=== PATIENT | female | born 1995 | race Caucasian/White ===

== ENCOUNTER 2019-07-19 01:14 | Emergency (ER) | payer OTHER ==
--- NOTE | 2019-07-19 01:32 | NUR ---
PT PRESENTED TO CONCRETE [employer]ER STATING SHE WAS NERVOUS ABOUT GETTING THE CORONAVIRUS SO SHE DECIDED TO LEAVE WITHOUT BEING SEEN.
--- OUTSIDE RECORDS SUMMARY | 2019-07-19 15:39 | XMS REPORT | CCD ---
Author Author Otilio Reddy Organization Abby Dodd MD, [facility] Address [address] [place] [address] Phone Care Team Providers Care Pattern Painter Name Role Phone PP Unavailable CCM Unavailable Summary Purpose Interface Exchange Insurance Providers Payer name Policy type / Coverage type Covered libertarian ID Effective Begin Date Effective End Date Blue Cross Blue [facility] e Cross/Blue Shield [id number] 2017 Un known Family history Father Diagnosis Age At Onset Alcoholism Unknown Social History Social History Element Codes Description Effective Dates Marital status Unknown S kaye 05/28/2017 Number of children Unknown 0 05/28/[address]: 68993867 Current every day smoker 05/28/2017 Number of years using tobacco Unknown 5 - 10 05/28/2017 Number of cigarettes/day Unknown 20 (One Pack) 05/28/2017 Alcohol history Unknown occasionally drinks alcohol 05/28/2017 Allergies, Adverse Reactions, Alerts Allergies, Adverse Reactions, Alerts data not found Past Medical History Illness Codes Condition Status Onset Date Resolved Date Attention-deficit hy peractivity disorder, combined type ICD-9: 314.01 ICD-10: F90.2 Active 05/28/2017 Unknown Essential (primary) hypertension ICD-9: 401.1 ICD-10: I10 Active 05/28/2017 Unknown Problems Condition Codes Effectiv e Dates Condition Status Attention-deficit hy peractivity disorder, combined type ICD-9: 314.01 ICD-10: F90.2 05/28/2017 Active Essential (primary) hypertension ICD-9: 401.1 ICD-10: I10 05/28/2017 Active Medications Medication Codes Instruc tions Start Date Stop Date Sta tus Fill Instructions Adderall 30 mg tablet RxNorm: 486984 1 Tablet(s) PO BID 11/26/2018 12/25/2018 Active Adderall 30 mg tablet RxNorm: 779341 1 Tablet(s) PO BID 10/28/2018 11/23/2018 Inactive Adderall 30 mg tablet RxNorm: 714556 1 Tablet(s) PO BID 09/29/2018 10/21/2018 Inactive Adderall 30 mg tablet RxNorm: 045716 1 Tablet(s) PO BID 09/02/2018 09/28/2018 Inactive Adderall 30 mg tablet RxNorm: 873867 1 Tablet(s) PO BID 08/05/2018 09/01/2018 Inactive Adderall 30 mg tablet RxNorm: 305647 1 Tablet(s) PO BID 07/09/2018 08/04/2018 Inactive Adderall 30 mg tablet RxNorm: 527442 1 Tablet(s) PO BID 06/10/2018 07/08/2018 Inactive Adderall 30 mg tablet RxNorm: 209821 1 Tablet(s) PO BID 05/17/2018 06/09/2018 Inactive Adderall 30 mg tablet RxNorm: 871634 1 Tablet(s) PO BID 04/16/2018 05/15/2018 Inactive Adderall 30 mg tablet RxNorm: 763820 1 Tablet(s) PO BID 03/19/2018 04/15/2018 Inactive Adderall 30 mg tablet RxNorm: 327303 1 Tablet(s) PO BID 02/23/2018 03/18/2018 Inactive Adderall 30 mg tablet RxNorm: 309994 1 Tablet(s) PO BID 01/25/2018 02/22/2018 Inactive Adderall 30 mg tablet RxNorm: 917786 1 Tablet(s) PO BID 12/25/2017 01/23/2018 Inactive Adderall 30 mg tablet RxNorm: 860548 1 Tablet(s) PO BID 11/26/2017 12/24/2017 Inactive Adderall 30 mg tablet RxNorm: 137955 1 Tablet(s) PO BID 10/22/2017 11/25/2017 Inactive Adderall 30 mg tablet RxNorm: 996749 1 Tablet(s) PO BID 09/22/2017 10/21/2017 Inactive Adderall 30 mg tablet RxNorm: 173802 1 Tablet(s) PO BID 08/28/2017 09/21/2017 Inactive metoprolol tartrate 25 mg tablet RxNorm: 910807 1/2 Tablet(s) PO alfa y 07/28/2017 08/26/2017 In active Adderall 30 mg tablet RxNorm: 278114 1 Tablet(s) PO BID 06/29/2017 08/29/2017 Inactive Adderall 30 mg tablet RxNorm: 944087 1 Tablet(s) PO BID 05/28/2017 06/29/2017 Inactive Adderall 30 mg tablet RxNorm: 430267 1 Tablet(s) PO BID No Start Date 05/27/2017 Inactive Medication Administered No Medication Administered data Immunizations No Immunization data Assessments Condition Codes Effectiv e Dates Attention-deficit hyperactivity disorder, combined typ e ICD- 10: F90.2 ICD-9: 314.01 08/05/2018 Essential (primary) hypertension ICD -10: I10 ICD-9: 401.1 08/05/2018 Reason For Visit Reason For Visit Effective Dates Notes medication follow up 08/05/2018 medication follow up 03/19/2018 medication follow up 12/09/2017 medication follow up 08/28/2017 medication follow up 07/28/2017 medication follow up 06/29/2017 medication follow up 05/28/2017 Results No Results data Review of Systems System Result Effective Dates Constitutional No recent illness 08/05/2018 Constitutional No chills 08/05/2018 Constitutional No diaphoresis 08/05/2018 Constitutional No fever 08/05/2018 Eyes No eye erythema 11/2018 Ears/Nose/Throat/Neck No nasal allergies 08/05/2018 Ears/Nose/Throat/Neck No nasal discharge 08/05/2018 Cardiovascular No chest pain/pressure 08/05/2018 Cardiovascular No dyspnea 08/05/2018 Cardiovascular No near-syncope/dizziness 08/05/2018 Cardiovascular No palpitations 08/05/2018 Cardiovascular No syncope 08/05/2018 Respiratory No chest congestion 08/05/2018 Respiratory cigarette smoking 08/05/2018 Respiratory No cough 11/2018 Gastrointestinal No abdominal pain 08/05/2018 Gastrointestinal No constipation 08/05/2018 Gastrointestinal No diarrhea 08/05/2018 Gastrointestinal No nausea 08/05/2018 Gastrointestinal No vomiting 08/05/2018 Musculoskeletal No joint complaint 08/05/2018 Dermatologic No rash 11/2018 Neurologic No alteration of consciousness 08/05/2018 Neurologic No mental status change 08/05/2018 Constitutional No recent illness 03/19/2018 Constitutional No chills 03/19/2018 Constitutional No diaphoresis 03/19/2018 Constitutional No fever 03/19/2018 Eyes No eye erythema Ears/Nose/Throat/Neck No nasal allergies 03/19/2018 Ears/Nose/Throat/Neck No nasal discharge 03/19/2018 Cardiovascular No chest pain/pressure 03/19/2018 Cardiovascular No dyspnea 03/19/2018 Cardiovascular No near-syncope/dizziness 03/19/2018 Cardiovascular No palpitations 03/19/2018 Cardiovascular No syncope 03/19/2018 Respiratory No chest congestion 03/19/2018 Respiratory cigarette smoking 03/19/2018 Respiratory No cough Gastrointestinal No abdominal pain 03/19/2018 Gastrointestinal No constipation 03/19/2018 Gastrointestinal No diarrhea 03/19/2018 Gastrointestinal No nausea 03/19/2018 Gastrointestinal No vomiting 03/19/2018 Musculoskeletal No joint complaint 03/19/2018 Dermatologic No rash Neurologic No alteration of consciousness 03/19/2018 Neurologic No mental status change 03/19/2018 Constitutional No recent illness 12/09/2017 Constitutional No chills 12/09/2017 Constitutional No diaphoresis 12/09/2017 Constitutional No fever 12/09/2017 Eyes No eye erythema 02/2018 Ears/Nose/Throat/Neck No nasal allergies 12/09/2017 Ears/Nose/Throat/Neck No nasal discharge 12/09/2017 Cardiovascular No chest pain/pressure 12/09/2017 Cardiovascular No dyspnea 12/09/2017 Cardiovascular No near-syncope/dizziness 12/09/2017 Cardiovascular No palpitations 12/09/2017 Cardiovascular No syncope 12/09/2017 Respiratory No chest congestion 12/09/2017 Respiratory cigarette smoking 12/09/2017 Respiratory No cough 02/2018 Gastrointestinal No abdominal pain 12/09/2017 Gastrointestinal No constipation 12/09/2017 Gastrointestinal No diarrhea 12/09/2017 Gastrointestinal No nausea 12/09/2017 Gastrointestinal No vomiting 12/09/2017 Musculoskeletal No joint complaint 12/09/2017 Dermatologic No rash 02/2018 Neurologic No alteration of consciousness 12/09/2017 Neurologic No mental status change 12/09/2017 Constitutional No recent illness 08/28/2017 Constitutional No chills 08/28/2017 Constitutional No diaphoresis 08/28/2017 Constitutional No fever 08/28/2017 Eyes No eye erythema 03/2017 Ears/Nose/Throat/Neck No nasal allergies 08/28/2017 Ears/Nose/Throat/Neck No nasal discharge 08/28/2017 Cardiovascular No chest pain/pressure 08/28/2017 Cardiovascular No dyspnea 08/28/2017 Cardiovascular No near-syncope/dizziness 08/28/2017 Cardiovascular No palpitations 08/28/2017 Cardiovascular No syncope 08/28/2017 Respiratory No chest congestion 08/28/2017 Respiratory cigarette smoking 08/28/2017 Respiratory No cough 03/2017 Gastrointestinal No abdominal pain 08/28/2017 Gastrointestinal No constipation 08/28/2017 Gastrointestinal No diarrhea 08/28/2017 Gastrointestinal No nausea 08/28/2017 Gastrointestinal No vomiting 08/28/2017 Musculoskeletal No joint complaint 08/28/2017 Dermatologic No rash 03/2017 Neurologic No alteration of consciousness 08/28/2017 Neurologic No mental status change 08/28/2017 Constitutional No recent illness 07/28/2017 Constitutional No chills 07/28/2017 Constitutional No diaphoresis 07/28/2017 Constitutional No fever 07/28/2017 Eyes No eye erythema 03/2017 Ears/Nose/Throat/Neck No nasal allergies 07/28/2017 Ears/Nose/Throat/Neck No nasal discharge 07/28/2017 Cardiovascular No chest pain/pressure 07/28/2017 Cardiovascular No dyspnea 07/28/2017 Cardiovascular No near-syncope/dizziness 07/28/2017 Cardiovascular No palpitations 07/28/2017 Cardiovascular No syncope 07/28/2017 Respiratory No chest congestion 07/28/2017 Respiratory cigarette smoking 07/28/2017 Respiratory No cough 03/2017 Gastrointestinal No abdominal pain 07/28/2017 Gastrointestinal No constipation 07/28/2017 Gastrointestinal No diarrhea 07/28/2017 Gastrointestinal No nausea 07/28/2017 Gastrointestinal No vomiting 07/28/2017 Musculoskeletal No joint complaint 07/28/2017 Dermatologic No rash 03/2017 Neurologic No alteration of consciousness 07/28/2017 Neurologic No mental status change 07/28/2017 Cardiovascular hypertension 07/28/2017 Constitutional No recent illness 06/29/2017 Constitutional No chills 06/29/2017 Constitutional No diaphoresis 06/29/2017 Constitutional No fever 06/29/2017 Eyes No eye erythema 04/2017 Ears/Nose/Throat/Neck No nasal allergies 06/29/2017 Ears/Nose/Throat/Neck No nasal discharge 06/29/2017 Cardiovascular No chest pain/pressure 06/29/2017 Cardiovascular No dyspnea 06/29/2017 Cardiovascular No near-syncope/dizziness 06/29/2017 Cardiovascular No palpitations 06/29/2017 Cardiovascular No syncope 06/29/2017 Respiratory No chest congestion 06/29/2017 Respiratory cigarette smoking 06/29/2017 Respiratory No cough 04/2017 Gastrointestinal No abdominal pain 06/29/2017 Gastrointestinal No constipation 06/29/2017 Gastrointestinal No diarrhea 06/29/2017 Gastrointestinal No nausea 06/29/2017 Gastrointestinal No vomiting 06/29/2017 Musculoskeletal No joint complaint 06/29/2017 Dermatologic No rash 04/2017 Neurologic No alteration of consciousness 06/29/2017 Neurologic No mental status change 06/29/2017 Constitutional No recent illness 05/28/2017 Constitutional No chills 05/28/2017 Constitutional No diaphoresis 05/28/2017 Constitutional No fever 05/28/2017 Eyes No eye erythema 03/2017 Ears/Nose/Throat/Neck No nasal discharge 05/28/2017 Ears/Nose/Throat/Neck No nasal allergies 05/28/2017 Cardiovascular No chest pain/pressure 05/28/2017 Cardiovascular No dyspnea 05/28/2017 Cardiovascular No near-syncope/dizziness 05/28/2017 Cardiovascular No syncope 05/28/2017 Cardiovascular No palpitations 05/28/2017 Respiratory No cough 03/2017 Respiratory No chest congestion 05/28/2017 Respiratory cigarette smoking 05/28/2017 Gastrointestinal No abdominal pain 05/28/2017 Gastrointestinal No constipation 05/28/2017 Gastrointestinal No diarrhea 05/28/2017 Gastrointestinal No vomiting 05/28/2017 Gastrointestinal No nausea 05/28/2017 Gastrointestinal No melena 05/28/2017 Gastrointestinal No hematochezia 05/28/2017 Musculoskeletal No joint complaint 05/28/2017 Dermatologic No rash 03/2017 Neurologic No alteration of consciousness 05/28/2017 Neurologic No mental status change 05/28/2017 Physical Exam Exam Name System Name It em Name Status Result Effective Dates Notes Full Exam - General 1994 Constitutional general appearance Overall: well developed 08/05/2018 None Full Exam - General 1994 Constitutional general appearance Overall: in no acute distress 08/05/2018 None Full Exam - General 1994 Constitutional general appearance Overall: well nourished 08/05/2018 None Full Exam - General 1994 Eyes pupils and irises Overall: pupils equal, round, reactive to light and accomodation 08/05/2018 None Full Exam - General 1995 Ears/Nose/Throat otoscopic exam Overall: external auditory canals clear 08/05/2018 None Full Exam - General 1994 Ears/Nose/Throat otoscopic exam Overall: tympanic membranes clear 08/05/2018 None Full Exam - General 1994 Ears/Nose/Throat lips/teeth/gingiva Overall: benign lips 08/05/2018 None Full Exam - General 1995 Ears/Nose/Throat oral cavity/pharynx/larynx Overall: oral mucosa clear 08/05/2018 None Full Exam - General 1994 Ears/Nose/Throat oral cavity/pharynx/larynx Overall: oropharyngeal mucosa clear 08/05/2018 None Full Exam - General 1994 Respiratory auscultation Overall: breath sounds clear bilaterally 08/05/2018 None Full Exam - General 1994 Respiratory respiratory effort/rhythm Overall: no retractions 08/05/2018 None Full Exam - General 1994 Respiratory respiratory effort/rhythm Overall: normal rate 08/05/2018 None Full Exam - General 1994 Cardiovascular auscultation of heart Overall: normal heart sounds 08/05/2018 None Full Exam - General 1994 Cardiovascular auscultation of heart Rate: tachycardia 08/05/2018 None Full Exam - General 1994 Musculoskeletal gait and station Overall: normal gait 08/05/2018 None Full Exam - General 1994 Musculoskeletal gait and station Overall: normal station 08/05/2018 None Full Exam - General 1994 Musculoskeletal head and neck Overall: head atraumatic 08/05/2018 None Full Exam - General 1994 Neurologic cranial nerves Overall: crainial nerves 2 - 12 grossly intact 08/05/2018 None Full Exam - General 1994 Psychiatric orientation/consciousness Overall: oriented to person, place and time 08/05/2018 None Full Exam - General 1994 Psychiatric mood and affect Overall: normal mood and affect 08/05/2018 None Full Exam - General 1994 Psychiatric appearance Overall: well-groomed, good eye contact 08/05/2018 None Full Exam - General 1994 Constitutional general appearance Overall: well developed 03/19/2018 None Full Exam - General 1994 Constitutional general appearance Overall: in no acute distress 03/19/2018 None Full Exam - General 1994 Constitutional general appearance Overall: well nourished 03/19/2018 None Full Exam - General 1994 Ears/Nose/Throat lips/teeth/gingiva Overall: benign lips 03/19/2018 None Full Exam - General 1994 Ears/Nose/Throat oral cavity/pharynx/larynx Overall: oral mucosa clear 03/19/2018 None Full Exam - General 1994 Ears/Nose/Throat oral cavity/pharynx/larynx Overall: oropharyngeal mucosa clear 03/19/2018 None Full Exam - General 1994 Respiratory auscultation Overall: breath sounds clear bilaterally 03/19/2018 None Full Exam - General 1994 Respiratory respiratory effort/rhythm Overall: no retractions 03/19/2018 None Full Exam - General 1994 Respiratory respiratory effort/rhythm Overall: normal rate 03/19/2018 None Full Exam - General 1994 Cardiovascular auscultation of heart Overall: normal heart sounds 03/19/2018 None Full Exam - General 1994 Cardiovascular auscultation of heart Rate: tachycardia 03/19/2018 None Full Exam - General 1994 Musculoskeletal gait and station Overall: normal gait 03/19/2018 None Full Exam - General 1994 Musculoskeletal gait and station Overall: normal station 03/19/2018 None Full Exam - General 1994 Musculoskeletal head and neck Overall: head atraumatic 03/19/2018 None Full Exam - General 1994 Neurologic cranial nerves Overall: crainial nerves 2 - 12 grossly intact 03/19/2018 None Full Exam - General 1994 Psychiatric orientation/consciousness Overall: oriented to person, place and time 03/19/2018 None Full Exam - General 1994 Psychiatric mood and affect Overall: normal mood and affect 03/19/2018 None Full Exam - General 1994 Psychiatric appearance Overall: well-groomed, good eye contact 03/19/2018 None Full Exam - General 1994 Ears/Nose/Throat otoscopic exam Overall: tympanic membranes clear 03/19/2018 None Full Exam - General 1994 Ears/Nose/Throat otoscopic exam Overall: external auditory canals clear 03/19/2018 None Full Exam - General 1994 Eyes pupils and irises Overall: pupils equal, round, reactive to light and accomodation 03/19/2018 None Full Exam - General 1994 Constitutional general appearance Overall: well developed 12/09/2017 None Full Exam - General 1994 Constitutional general appearance Overall: in no acute distress 12/09/2017 None Full Exam - General 1994 Constitutional general appearance Overall: well nourished 12/09/2017 None Full Exam - General 1994 Eyes conjunctiva/eyelids Overall: conjunctiva clear 12/09/2017 None Full Exam - General 1994 Eyes conjunctiva/eyelids Overall: cornea clear 12/09/2017 None Full Exam - General 1994 Eyes conjunctiva/eyelids Overall: eyelids normal 12/09/2017 None Full Exam - General 1995 Ears/Nose/Throat lips/teeth/gingiva Overall: benign lips 12/09/2017 None Full Exam - General 1995 Ears/Nose/Throat oral cavity/pharynx/larynx Overall: oral mucosa clear 12/09/2017 None Full Exam - General 1995 Ears/Nose/Throat oral cavity/pharynx/larynx Overall: oropharyngeal mucosa clear 12/09/2017 None Full Exam - General 1994 Respiratory auscultation Overall: breath sounds clear bilaterally 12/09/2017 None Full Exam - General 1994 Respiratory respiratory effort/rhythm Overall: no retractions 12/09/2017 None Full Exam - General 1994 Respiratory respiratory effort/rhythm Overall: normal rate 12/09/2017 None Full Exam - General 1994 Cardiovascular auscultation of heart Overall: normal heart sounds 12/09/2017 None Full Exam - General 1994 Cardiovascular auscultation of heart Rate: tachycardia 12/09/2017 None Full Exam - General 1994 Musculoskeletal gait and station Overall: normal gait 12/09/2017 None Full Exam - General 1994 Musculoskeletal gait and station Overall: normal station 12/09/2017 None Full Exam - General 1994 Musculoskeletal head and neck Overall: head atraumatic 12/09/2017 None Full Exam - General 1994 Neurologic cranial nerves Overall: crainial nerves 2 - 12 grossly intact 12/09/2017 None Full Exam - General 1994 Psychiatric orientation/consciousness Overall: oriented to person, place and time 12/09/2017 None Full Exam - General 1994 Psychiatric mood and affect Overall: normal mood and affect 12/09/2017 None Full Exam - General 1994 Psychiatric appearance Overall: well-groomed, good eye contact 12/09/2017 None Full Exam - General 1994 Constitutional general appearance Overall: well developed 08/28/2017 None Full Exam - General 1994 Constitutional general appearance Overall: in no acute distress 08/28/2017 None Full Exam - General 1994 Constitutional general appearance Overall: well nourished 08/28/2017 None Full Exam - General 1994 Eyes conjunctiva/eyelids Overall: conjunctiva clear 08/28/2017 None Full Exam - General 1994 Eyes conjunctiva/eyelids Overall: cornea clear 08/28/2017 None Full Exam - General 1994 Eyes conjunctiva/eyelids Overall: eyelids normal 08/28/2017 None Full Exam - General 1994 Ears/Nose/Throat lips/teeth/gingiva Overall: benign lips 08/28/2017 None Full Exam - General 1995 Ears/Nose/Throat oral cavity/pharynx/larynx Overall: oral mucosa clear 08/28/2017 None Full Exam - General 1995 Ears/Nose/Throat oral cavity/pharynx/larynx Overall: oropharyngeal mucosa clear 08/28/2017 None Full Exam - General 1994 Respiratory auscultation Overall: breath sounds clear bilaterally 08/28/2017 None Full Exam - General 1994 Respiratory respiratory effort/rhythm Overall: no retractions 08/28/2017 None Full Exam - General 1994 Respiratory respiratory effort/rhythm Overall: normal rate 08/28/2017 None Full Exam - General 1994 Cardiovascular auscultation of heart Overall: normal heart sounds 08/28/2017 None Full Exam - General 1994 Cardiovascular auscultation of heart Rate: tachycardia 08/28/2017 None Full Exam - General 1994 Musculoskeletal gait and station Overall: normal gait 08/28/2017 None Full Exam - General 1994 Musculoskeletal gait and station Overall: normal station 08/28/2017 None Full Exam - General 1994 Musculoskeletal head and neck Overall: head atraumatic 08/28/2017 None Full Exam - General 1994 Neurologic cranial nerves Overall: crainial nerves 2 - 12 grossly intact 08/28/2017 None Full Exam - General 1994 Psychiatric orientation/consciousness Overall: oriented to person, place and time 08/28/2017 None Full Exam - General 1994 Psychiatric mood and affect Overall: normal mood and affect 08/28/2017 None Full Exam - General 1994 Psychiatric appearance Overall: well-groomed, good eye contact 08/28/2017 None Full Exam - General 1994 Constitutional general appearance Overall: well developed 07/28/2017 None Full Exam - General 1994 Constitutional general appearance Overall: in no acute distress 07/28/2017 None Full Exam - General 1994 Constitutional general appearance Overall: well nourished 07/28/2017 None Full Exam - General 1994 Eyes conjunctiva/eyelids Overall: conjunctiva clear 07/28/2017 None Full Exam - General 1994 Eyes conjunctiva/eyelids Overall: cornea clear 07/28/2017 None Full Exam - General 1994 Eyes conjunctiva/eyelids Overall: eyelids normal 07/28/2017 None Full Exam - General 1994 Ears/Nose/Throat lips/teeth/gingiva Overall: benign lips 07/28/2017 None Full Exam - General 1994 Ears/Nose/Throat oral cavity/pharynx/larynx Overall: oral mucosa clear 07/28/2017 None Full Exam - General 1995 Ears/Nose/Throat oral cavity/pharynx/larynx Overall: oropharyngeal mucosa clear 07/28/2017 None Full Exam - General 1994 Respiratory auscultation Overall: breath sounds clear bilaterally 07/28/2017 None Full Exam - General 1994 Respiratory respiratory effort/rhythm Overall: no retractions 07/28/2017 None Full Exam - General 1994 Respiratory respiratory effort/rhythm Overall: normal rate 07/28/2017 None Full Exam - General 1994 Cardiovascular auscultation of heart Overall: normal heart sounds 07/28/2017 None Full Exam - General 1994 Musculoskeletal gait and station Overall: normal gait 07/28/2017 None Full Exam - General 1994 Musculoskeletal gait and station Overall: normal station 07/28/2017 None Full Exam - General 1994 Musculoskeletal head and neck Overall: head atraumatic 07/28/2017 None Full Exam - General 1994 Neurologic cranial nerves Overall: crainial nerves 2 - 12 grossly intact 07/28/2017 None Full Exam - General 1994 Psychiatric orientation/consciousness Overall: oriented to person, place and time 07/28/2017 None Full Exam - General 1994 Psychiatric mood and affect Overall: normal mood and affect 07/28/2017 None Full Exam - General 1994 Psychiatric appearance Overall: well-groomed, good eye contact 07/28/2017 None Full Exam - General 1994 Cardiovascular auscultation of heart Rate: tachycardia 07/28/2017 None Full Exam - General 1994 Constitutional general appearance Overall: well developed 06/29/2017 None Full Exam - General 1994 Constitutional general appearance Overall: in no acute distress 06/29/2017 None Full Exam - General 1994 Constitutional general appearance Overall: well nourished 06/29/2017 None Full Exam - General 1994 Eyes conjunctiva/eyelids Overall: conjunctiva clear 06/29/2017 None Full Exam - General 1994 Eyes conjunctiva/eyelids Overall: cornea clear 06/29/2017 None Full Exam - General 1994 Eyes conjunctiva/eyelids Overall: eyelids normal 06/29/2017 None Full Exam - General 1994 Ears/Nose/Throat lips/teeth/gingiva Overall: benign lips 06/29/2017 None Full Exam - General 1994 Ears/Nose/Throat oral cavity/pharynx/larynx Overall: oral mucosa clear 06/29/2017 None Full Exam - General 1994 Ears/Nose/Throat oral cavity/pharynx/larynx Overall: oropharyngeal mucosa clear 06/29/2017 None Full Exam - General 1994 Respiratory auscultation Overall: breath sounds clear bilaterally 06/29/2017 None Full Exam - General 1994 Respiratory respiratory effort/rhythm Overall: no retractions 06/29/2017 None Full Exam - General 1994 Respiratory respiratory effort/rhythm Overall: normal rate 06/29/2017 None Full Exam - General 1994 Cardiovascular auscultation of heart Overall: regular rate 06/29/2017 None Full Exam - General 1994 Cardiovascular auscultation of heart Overall: normal heart sounds 06/29/2017 None Full Exam - General 1994 Musculoskeletal gait and station Overall: normal gait 06/29/2017 None Full Exam - General 1994 Musculoskeletal gait and station Overall: normal station 06/29/2017 None Full Exam - General 1994 Musculoskeletal head and neck Overall: head atraumatic 06/29/2017 None Full Exam - General 1994 Neurologic cranial nerves Overall: crainial nerves 2 - 12 grossly intact 06/29/2017 None Full Exam - General 1994 Psychiatric orientation/consciousness Overall: oriented to person, place and time 06/29/2017 None Full Exam - General 1994 Psychiatric mood and affect Overall: normal mood and affect 06/29/2017 None Full Exam - General 1994 Psychiatric appearance Overall: well-groomed, good eye contact 06/29/2017 None Full Exam - General 1994 Constitutional general appearance Overall: well developed 05/28/2017 None Full Exam - General 1994 Constitutional general appearance Overall: well nourished 05/28/2017 None Full Exam - General 1994 Constitutional general appearance Overall: in no acute distress 05/28/2017 None Full Exam - General 1994 Eyes conjunctiva/eyelids Overall: conjunctiva clear 05/28/2017 None Full Exam - General 1994 Eyes conjunctiva/eyelids Overall: cornea clear 05/28/2017 None Full Exam - General 1994 Eyes conjunctiva/eyelids Overall: eyelids normal 05/28/2017 None Full Exam - General 1994 Eyes pupils and irises Overall: pupils equal, round, reactive to light and accomodation 05/28/2017 None Full Exam - General 1994 Ears/Nose/Throat otoscopic exam Overall: external auditory canals clear 05/28/2017 None Full Exam - General 1994 Ears/Nose/Throat otoscopic exam Overall: tympanic membranes clear 05/28/2017 None Full Exam - General 1994 Ears/Nose/Throat lips/teeth/gingiva Overall: benign lips 05/28/2017 None Full Exam - General 1994 Ears/Nose/Throat oral cavity/pharynx/larynx Overall: oral mucosa clear 05/28/2017 None Full Exam - General 1994 Ears/Nose/Throat oral cavity/pharynx/larynx Overall: oropharyngeal mucosa clear 05/28/2017 None Full Exam - General 1994 Respiratory respiratory effort/rhythm Overall: normal rate 05/28/2017 None Full Exam - General 1994 Respiratory respiratory effort/rhythm Overall: no retractions 05/28/2017 None Full Exam - General 1994 Respiratory auscultation Overall: breath sounds clear bilaterally 05/28/2017 None Full Exam - General 1994 Cardiovascular auscultation of heart Overall: normal heart sounds 05/28/2017 None Full Exam - General 1994 Cardiovascular auscultation of heart Overall: regular rate 05/28/2017 None Full Exam - General 1994 Abdomen abdominal exam Overall: no tenderness 05/28/2017 None Full Exam - General 1994 Abdomen abdominal exam Overall: normal bowel sounds 05/28/2017 None Full Exam - General 1994 Lymphatic neck nodes Overall: posterior cervical chain benign 05/28/2017 None Full Exam - General 1994 Lymphatic neck nodes Overall: anterior cervical chain benign 05/28/2017 None Full Exam - General 1994 Musculoskeletal head and neck Overall: head atraumatic 05/28/2017 None Full Exam - General 1994 Musculoskeletal gait and station Overall: normal gait 05/28/2017 None Full Exam - General 1994 Musculoskeletal gait and station Overall: normal station 05/28/2017 None Full Exam - General 1994 Neurologic cranial nerves Overall: crainial nerves 2 - 12 grossly intact 05/28/2017 None Full Exam - General 1994 Psychiatric orientation/consciousness Overall: oriented to person, place and time 05/28/2017 None Full Exam - General 1994 Psychiatric mood and affect Overall: normal mood and affect 05/28/2017 None Full Exam - General 1994 Psychiatric appearance Overall: well-groomed, good eye contact 05/28/2017 None Procedures No Procedures data Vital Signs Date Vital 08/05/2018 Blood Pressure 1: 128/72 Code: 8480-6 BMI: 24.4 Code: 23888-6 Heart Rate 1: 105 bpm Height: 5' SpO2: 98% Weight: 125 lbs 03/19/2018 Blood Pressure 1: 128/74 Code: 8480-6 BMI: 24.8 Code: 32858-3 Heart Rate 1: 88 bpm Height: 5' SpO2: 99% Weight: 127 lbs 12/09/2017 Blood Pressure 1: 133/88 Code: 8480-6 BMI: 24.2 Code: 88281-7 Heart Rate 1: 102 bpm Height: 5' SpO2: 98% Weight: 124 lbs 08/28/2017 Blood Pressure 1: 130/86 Code: 8480-6 BMI: 24.2 Code: 82323-6 Heart Rate 1: 90 bpm Height: 5' SpO2: 98% Weight: 124 lbs 07/28/2017 Blood Pressure 1: 138/88 Code: 8480-6 BMI: 24.4 Code: 07614-7 Heart Rate 1: 105 bpm Height: 5' SpO2: 98% Weight: 125 lbs 06/29/2017 Blood Pressure 1: 180/120 Code: 8480-6 Blood Pressure 1: 158/96 Code: 8480-6 Blood Pressure 1: 148/82 Code: 8480-6 BMI: 24.6 Code: 42350-1 Heart Rate 1: 107 bpm Heart Rate 1: 92 bpm Height: 5' SpO2: 99% Weight: 126 lbs 05/28/2017 Blood Pressure 1: 152/98 Code: 8480-6 BMI: 24.4 Code: 02706-9 Heart Rate 1: 104 bpm Height: 5' SpO2: 97% Weight: 125 lbs Functional Status No Functional Status data History of Present Illness Symptom Name Status Resu lt Effective Date Notes Additional Comments me dication use 08/05/2018 None Location oral intake 08/05/2018 None Additional Comments me dication: adderall 08/05/2018 None Quality chronic 08/05/2018 None Additional Comments me dication use 03/19/2018 None Location oral intake 03/19/2018 None medication follow up Location oral intake 12/09/2017 None hypertension Quality con stant 12/09/2017 None hypertension Onset and Resolution ongoing 12/09/2017 None hypertension Onset of Symptom during adulthood 12/09/2017 None hypertension Pertinent Findings Denies dizziness 12/09/2017 None hypertension Pertinent Findings Denies dyspnea 12/09/2017 None hypertension Pertinent Findings Denies muscle weakness 12/09/2017 None hypertension Pertinent Findings Denies palpitations 12/09/2017 None medication follow up Location oral intake 08/28/2017 None hypertension Quality con stant 08/28/2017 None hypertension Onset and Resolution ongoing 08/28/2017 None hypertension Onset of Symptom during adulthood 08/28/2017 None hypertension Pertinent Findings Denies dizziness 08/28/2017 None hypertension Pertinent Findings Denies dyspnea 08/28/2017 None hypertension Pertinent Findings Denies muscle weakness 08/28/2017 None hypertension Pertinent Findings Denies palpitations 08/28/2017 None medication follow up Location oral intake 07/28/2017 None hypertension Quality con stant 07/28/2017 None hypertension Onset and Resolution ongoing 07/28/2017 None hypertension Onset of Symptom during adulthood 07/28/2017 None hypertension Pertinent Findings Denies dizziness 07/28/2017 None hypertension Pertinent Findings Denies dyspnea 07/28/2017 None hypertension Pertinent Findings Denies muscle weakness 07/28/2017 None hypertension Pertinent Findings Denies palpitations 07/28/2017 None medication follow up Location oral intake 06/29/2017 None hypertension Quality con stant 06/29/2017 None hypertension Onset and Resolution ongoing 06/29/2017 None hypertension Onset of Symptom during adulthood 06/29/2017 None hypertension Pertinent Findings Denies dizziness 06/29/2017 None hypertension Pertinent Findings Denies dyspnea 06/29/2017 None hypertension Pertinent Findings Denies muscle weakness 06/29/2017 None hypertension Pertinent Findings Denies palpitations 06/29/2017 None medication follow up Additional Comments medication use 05/28/2017 None medication follow up Location oral intake 05/28/2017 None Advance Directives No Advance Directive data Encounters Encounter Performer Loca tion Codes Date 61747 EST. PATIENT, LEVEL III Diagnosis: Essential (primary) hypertension[ICD10: I10] Diagnosis: Attention-deficit hyperactivity disorder, combined type[ICD10: F90.2] Traci Dodd MD, [facility] CPT-4: 04543 08/05/2018 [id number] EST. PATIENT, LEVEL III Diagnosis: Essential (primary) hypertension[ICD10: I10] Diagnosis: Attention-deficit hyperactivity disorder, combined type[ICD10: F90.2] Traci Dodd MD, [facility] CPT-4: 64499 03/19/2018 28486 EST. PATIENT, LEVEL IV Diagnosis: Essential (primary) hypertension[ICD10: I10] Diagnosis: Attention-deficit hyperactivity disorder, combined type[ICD10: F90.2] Traci Dodd MD, [facility] CPT-4: 10383 12/09/2017 13288 EST. PATIENT, LEVEL IV Diagnosis: Essential (primary) hypertension[ICD10: I10] Diagnosis: Attention-deficit hyperactivity disorder, combined type[ICD10: F90.2] [facility] CPT-4: 81385 08/28/2017 71206 EST. PATIENT, LEVEL IV Diagnosis: Essential (primary) hypertension[ICD10: I10] Diagnosis: Attention-deficit hyperactivity disorder, combined type[ICD10: F90.2] [facility] CPT-4: 25361 07/28/2017 79809 EST. PATIENT, LEVEL IV Diagnosis: Essential (primary) hypertension[ICD10: I10] Diagnosis: Attention-deficit hyperactivity disorder, combined type[ICD10: F90.2] Traci Dodd MD, [facility] CPT-4: 14005 06/29/2017 OFFICE VISIT, NEW - LEVEL 3 Diagnosis: Essential (primary) hypertension[ICD10: I10] Diagnosis: Attention-deficit hyperactivity disorder, combined type[ICD10: F90.2] [facility] CPT-4: 48739 05/28/2017 Plan of Care Planned Activity Notes C odes Status Date Appointment: Leatha Bolden WPtel: [address] [place], [place] [phone] (30 min) Complex 11/15/2018 Appointment: Traci Reddy WPtel: [address] [place], [place] [phone] (15 min) Moderate 09/15/2018 Visit Plan: Hypertension - The rich ent has been counseled to cut back on salt in diet for a no added salt diet, low fat diet, start an exercise program with low weight bearing exercises and higher aerobic activity for heart health. The pt is to call for acute concerns. ADHD - medication working well for treatment of the pt's medical condition and the pt is to continue with current medication for treatment of the symptoms of ADHD. The pt is to call if they notice palpitations, rapid weight loss, severe insomnia that does improve. Pt is to call for any acute concerns, or if the medication does not seem to be working for improvement of the ADHD symptoms. Pt is aware of risk associated with medication use, and the danger of the medication if in the hands of someone to whom the medication was not prescribed. 08/05/2018 Appointment: Traci Reddy WPtel: [facility] (30 min) Complex 08/05/2018 Patient Education: Patient Medication Summary Completed 08/05/2018 Visit Plan: Hypertension - The rich ent has been counseled to cut back on salt in diet for a no added salt diet, low fat diet, start an exercise program with low weight bearing exercises and higher aerobic activity for heart health. The pt is to call for acute concerns. ADHD - medication working well for treatment of the pt's medical condition and the pt is to continue with current medication for treatment of the symptoms of ADHD. The pt is to call if they notice palpitations, rapid weight loss, severe insomnia that does improve. Pt is to call for any acute concerns, or if the medication does not seem to be working for improvement of the ADHD symptoms. Pt is aware of risk associated with medication use, and the danger of the medication if in the hands of someone to whom the medication was not prescribed. 03/19/2018 Appointment: Traci Reddy WPtel: [facility] (15 min) Moderate 03/19/2018 Patient Education: Patient Medication Summary Completed 03/19/2018 Appointment: Traci Reddy WPtel: [facility] (15 min) Moderate 03/18/2018 Visit Plan: Hypertension - The rich ent has been counseled to cut back on salt in diet for a no added salt diet, low fat diet, start an exercise program with low weight bearing exercises and higher aerobic activity for heart health. The pt is to call for acute concerns. ADHD - medication working well for treatment of the pt's medical condition and the pt is to continue with current medication for treatment of the symptoms of ADHD. The pt is to call if they notice palpitations, rapid weight loss, severe insomnia that does improve. Pt is to call for any acute concerns, or if the medication does not seem to be working for improvement of the ADHD symptoms. Pt is aware of risk associated with medication use, and the danger of the medication if in the hands of someone to whom the medication was not prescribed. 12/09/2017 Appointment: Traci Reddy WPtel: [facility] [place] (15 min) Moderate 12/09/2017 Patient Education: Patient Medication Summary Completed 12/09/2017 [phone] [facility] [place] (15 min) Moderate 12/02/2017 Visit Plan: Hypertension - The rich ent has been counseled to cut back on salt in diet for a no added salt diet, low fat diet, start an exercise program with low weight bearing exercises and higher aerobic activity for heart health. The patient is to check blood pressure readings as an outpatient and either fax, call, or email the readings to the office next week for practitioner to review. The pt is to call for acute concerns. ADHD - medication working well for treatment of the pt's medical condition and the pt is to continue with current medication for treatment of the symptoms of ADHD. The pt is to call if they notice palpitations, rapid weight loss, severe insomnia that does improve. Pt is to call for any acute concerns, or if the medication does not seem to be working for improvement of the ADHD symptoms. Pt is aware of risk associated with medication use, and the danger of the medication if in the hands of someone to whom the medication was not prescribed. 08/28/2017 App[facility]ment: [phone] [facility] (15 min) Moderate 08/28/2017 Patient Education: Patient Medication Summary Completed 08/28/2017 Visit Plan: Hypertension - uncontro lled - the patient's medications have been modified as documented in the visit note. The patient has been counseled to cut back on salt in diet for a no added salt diet, low fat d iet, start an exercise program with low weight bearing exercises and higher aerobic activity for heart health. The patient is to check blood pressure readings as an outpatient and either fax, call, or email the readings to the office next week for practitioner to review. The pt is to call for acute concerns. ADHD - medication working well for treatment of the pt's medical condition and the pt is to continue with current medication for treatment of the symptoms of ADHD. The pt is to call if they notice palpitations, rapid weight loss, severe insomnia that does improve. Pt is to call for any acute concerns, or if the medication does not seem to be working for improvement of the ADHD symptoms. Pt is aware of risk associated with medication use, and the danger of the medication if in the hands of someone to whom the medication was not prescribed. 07/28/2017 Appointment: Traci Reddyl: [phone] [facility] (15 min) Moderate 07/28/2017 Patient Education: Patient Medication Summary Completed 07/28/2017 [facility]ment: [facility] [facility] (15 min) Moderate 07/02/2017 Visit Plan: Hypertension - The rich ent has been counseled to cut back on salt in diet for a no added salt diet, low fat diet, start an exercise program with low weight bearing exercises and higher aerobic activity for heart health. The patient is to check blood pressure readings as an outpatient and either fax, call, or email the readings to the office next week for practitioner to review. The pt is to call for acute concerns. ADHD - medication working well for treatment of the pt's medical condition and the pt is to continue with current medication for treatment of the symptoms of ADHD. The pt is to call if they notice palpitations, rapid weight loss, severe insomnia that does improve. Pt is to call for any acute concerns, or if the medication does not seem to be working for improvement of the ADHD symptoms. Pt is aware of risk associated with medication use, and the danger of the medication if in the hands of someone to whom the medication was not prescribed. 06/29/2017 App[facility]ment: [phone] [facility] (15 min) Moderate 06/29/2017 Patient Education: Patient Medication Summary Completed 06/29/2017 Visit Plan: Hypertension - uncontro lled - The patient has been counseled to cut back on salt in diet for a no added salt diet, low fat diet, start an exercise program with low weight bearing exercises and higher ae robic activity for heart health. The patient is to check blood pressure readings as an outpatient and either fax, call, or email the readings to the office next week for practitioner to review. The pt is to call for acute concerns. ADHD - medication working well for treatment of the pt's medical condition and the pt is to continue with current medication for treatment of the symptoms of ADHD. The pt is to call if they notice palpitations, rapid weight loss, severe insomnia that does improve. Pt is to call for any acute concerns, or if the medication does not seem to be working for improvement of the ADHD symptoms. Pt is aware of risk associated with medication use, and the danger of the medication if in the hands of someone to whom the medication was not prescribed. 05/28/2017 Appointment: [phone] [facility] [facility] Patient 05/28/2017 Patient Education: Patient Medication Summary Completed 05/28/2017 App[facility]ment: [facility] [facility] [facility] Patient 05/22/2017 Instructions Comment . Hypertension - Th e patient has been counseled to cut back on salt in diet for a no added salt diet, low fat diet, start an exercise program with low weight bearing exercises and higher aerobic activity for heart health. The pt is to call for acute concerns. ADHD - medication working well for treatment of the pt's medical condition and the pt is to continue with current medication for treatment of the symptoms of ADHD. The pt is to call if they notice palpitations, rapid weight loss, severe insomnia that does improve. Pt is to call for any acute concerns, or if the medication does not seem to be working for improvement of the ADHD symptoms. Pt is aware of risk associated with medication use, and the danger of the medication if in the hands of someone to whom the medication was not prescribed. . Hypertension - Th e patient has been counseled to cut back on salt in diet for a no added salt diet, low fat diet, start an exercise program with low weight bearing exercises and higher aerobic activity for heart health. The patient is to check blood pressure readings as an outpatient and either fax, call, or email the readings to the office next week for practitioner to review. The pt is to call for acute concerns. ADHD - medication working well for treatment of the pt's medical condition and the pt is to continue with current medication for treatment of the symptoms of ADHD. The pt is to call if they notice palpitations, rapid weight loss, severe insomnia that does improve. Pt is to call for any acute concerns, or if the medication does not seem to be working for improvement of the ADHD symptoms. Pt is aware of risk associated with medication use, and the danger of the medication if in the hands of someone to whom the medication was not prescribed. . Hypertension - Th e patient has been counseled to cut back on salt in diet for a no added salt diet, low fat diet, start an exercise program with low weight bearing exercises and higher aerobic activity for heart health. The pt is to call for acute concerns. ADHD - medication working well for treatment of the pt's medical condition and the pt is to continue with current medication for treatment of the symptoms of ADHD. The pt is to call if they notice palpitations, rapid weight loss, severe insomnia that does improve. Pt is to call for any acute concerns, or if the medication does not seem to be working for improvement of the ADHD symptoms. Pt is aware of risk associated with medication use, and the danger of the medication if in the hands of someone to whom the medication was not prescribed. . Hypertension - unc ontrolled - the patient's medications have been modified as documented in the visit note. The patient has been counseled to cut back on salt in diet for a no added salt diet, low fat diet, start an exercise program with low weight bearing exercises and higher aerobic activity for heart health. The patient is to check blood pressure readings as an outpatient and either fax, call, or email the readings to the office next week for practitioner to review. The pt is to call for acute concerns. ADHD - medication working well for treatment of the pt's medical condition and the pt is to continue with current medication for treatment of the symptoms of ADHD. The pt is to call if they notice palpitations, rapid weight loss, severe insomnia that does improve. Pt is to call for any acute concerns, or if the medication does not seem to be working for improvement of the ADHD symptoms. Pt is aware of risk associated with medication use, and the danger of the medication if in the hands of someone to whom the medication was not prescribed. . Hypertension - Th e patient has been counseled to cut back on salt in diet for a no added salt diet, low fat diet, start an exercise program with low weight bearing exercises and higher aerobic activity for heart health. The pt is to call for acute concerns. ADHD - medication working well for treatment of the pt's medical condition and the pt is to continue with current medication for treatment of the symptoms of ADHD. The pt is to call if they notice palpitations, rapid weight loss, severe insomnia that does improve. Pt is to call for any acute concerns, or if the medication does not seem to be working for improvement of the ADHD symptoms. Pt is aware of risk associated with medication use, and the danger of the medication if in the hands of someone to whom the medication was not prescribed. Check blood pressure s and heart rates at home and bring by a copy to review in 2 weeks. . Hypertension - uncontrolled - The patient has been counseled to cut back on salt in diet for a no added salt diet, low fat diet, start an exercise program with low weight bearing exercises and higher aerobic activity for heart health. The patient is to check blood pressure readings as an outpatient and either fax, call, or email the readings to the office next week for practitioner to review. The pt is to call for acute concerns. ADHD - medication working well for treatment of the pt's medical condition and the pt is to continue with current medication for treatment of the symptoms of ADHD. The pt is to call if they notice palpitations, rapid weight loss, severe insomnia that does improve. Pt is to call for any acute concerns, or if the medication does not seem to be working for improvement of the ADHD symptoms. Pt is aware of risk associated with medication use, and the danger of the medication if in the hands of someone to whom the medication was not prescribed. . Hypertension - Th e patient has been counseled to cut back on salt in diet for a no added salt diet, low fat diet, start an exercise program with low weight bearing exercises and higher aerobic activity for heart health. The patient is to check blood pressure readings as an outpatient and either fax, call, or email the readings to the office next week for practitioner to review. The pt is to call for acute concerns. ADHD - medication working well for treatment of the pt's medical condition and the pt is to continue with current medication for treatment of the symptoms of ADHD. The pt is to call if they notice palpitations, rapid weight loss, severe insomnia that does improve. Pt is to call for any acute concerns, or if the medication does not seem to be working for improvement of the ADHD symptoms. Pt is aware of risk associated with medication use, and the danger of the medication if in the hands of someone to whom the medication was not prescribed.
--- OUTSIDE RECORDS SUMMARY | 2019-07-19 15:40 | XMS REPORT | CCD ---
Author Author Otilio Reddy Organization Abby Dodd MD, [facility] Address [address] [place] [address] Phone Care Team Providers Care Drier Attendant Name Role Phone PP Unavailable CCM Unavailable Summary Purpose Interface Exchange Insurance Providers Payer name Policy type / Coverage type Covered libertarian ID Effective Begin Date Effective End Date Blue Cross Blue [facility] e Cross/Blue Shield [id number] 2017 Un known Family history Father Diagnosis Age At Onset Alcoholism Unknown Social History Social History Element Codes Description Effective Dates Marital status Unknown S kaye 05/28/2017 Number of children Unknown 0 05/28/[address]: 21873016 Current every day smoker 05/28/2017 Number of [...] Fill Instructions Adderall 30 mg tablet RxNorm: 967076 1 Tablet(s) PO BID 08/05/2018 09/03/2018 Active Adderall 30 mg tablet RxNorm: 385345 1 Tablet(s) PO BID 07/09/2018 08/04/2018 Inactive Adderall 30 mg tablet RxNorm: 957784 1 Tablet(s) PO BID 06/10/2018 07/08/2018 Inactive Adderall 30 mg tablet RxNorm: 036885 1 Tablet(s) PO BID 05/17/2018 06/09/2018 Inactive Adderall 30 mg tablet RxNorm: 811998 1 Tablet(s) PO BID 04/16/2018 05/15/2018 Inactive Adderall 30 mg tablet RxNorm: 474090 1 Tablet(s) PO BID 03/19/2018 04/15/2018 Inactive Adderall 30 mg tablet RxNorm: 834309 1 Tablet(s) PO BID 02/23/2018 03/18/2018 Inactive Adderall 30 mg tablet RxNorm: 318915 1 Tablet(s) PO BID 01/25/2018 02/22/2018 Inactive Adderall 30 mg tablet RxNorm: 820563 1 Tablet(s) PO BID 12/25/2017 01/23/2018 Inactive Adderall 30 mg tablet RxNorm: 372160 1 Tablet(s) PO BID 11/26/2017 12/24/2017 Inactive Adderall 30 mg tablet RxNorm: 157573 1 Tablet(s) PO BID 10/22/2017 11/25/2017 Inactive Adderall 30 mg tablet RxNorm: 835629 1 Tablet(s) PO BID 09/22/2017 10/21/2017 Inactive Adderall 30 mg tablet RxNorm: 313432 1 Tablet(s) PO BID 08/28/2017 09/21/2017 Inactive metoprolol tartrate 25 mg tablet RxNorm: 693817 1/2 Tablet(s) PO alfa y 07/28/2017 08/26/2017 In active Adderall 30 mg tablet RxNorm: 306666 1 Tablet(s) PO BID 06/29/2017 08/29/2017 Inactive Adderall 30 mg tablet RxNorm: 409230 1 Tablet(s) PO BID 05/28/2017 06/29/2017 Inactive Adderall 30 mg tablet RxNorm: 173670 1 Tablet(s) PO BID No Start Date [...] accomodation 08/05/2018 None Full Exam - General 1994 Ears/Nose/Throat otoscopic exam Overall: external auditory canals clear 08/05/2018 None Full Exam - General 1994 Ears/Nose/Throat otoscopic exam Overall: tympanic membranes clear 08/05/2018 None Full Exam - General 1994 Ears/Nose/Throat lips/teeth/gingiva Overall: benign lips 08/05/2018 None Full Exam - General 1994 [...] normal 12/09/2017 None Full Exam - General 1994 Ears/Nose/Throat lips/teeth/gingiva Overall: benign lips 12/09/2017 None Full Exam - General 1994 Ears/Nose/Throat oral cavity/pharynx/larynx Overall: oral mucosa clear 12/09/2017 None Full Exam - General 1994 Ears/Nose/Throat [...] lips 08/28/2017 None Full Exam - General 1994 [...] 1: 128/72 Code: 8480-6 BMI: 24.4 Code: 91174-7 Heart Rate 1: 105 bpm Height: 5' SpO2: 98% Weight: 125 lbs 03/19/2018 Blood Pressure 1: 128/74 Code: 8480-6 BMI: 24.8 Code: 28312-5 Heart Rate 1: 88 bpm Height: 5' SpO2: 99% Weight: 127 lbs 12/09/2017 Blood Pressure 1: 133/88 Code: 8480-6 BMI: 24.2 Code: 69585-4 Heart Rate 1: 102 bpm Height: 5' SpO2: 98% Weight: 124 lbs 08/28/2017 Blood Pressure 1: 130/86 Code: 8480-6 BMI: 24.2 Code: 66572-4 Heart Rate 1: 90 bpm Height: 5' SpO2: 98% Weight: 124 lbs 07/28/2017 Blood Pressure 1: 138/88 Code: 8480-6 BMI: 24.4 Code: 41475-5 Heart Rate 1: 105 bpm Height: 5' SpO2: 98% Weight: 125 lbs 06/29/2017 Blood Pressure 1: 180/120 Code: 8480-6 Blood Pressure 1: 158/96 Code: 8480-6 Blood Pressure 1: 148/82 Code: 8480-6 BMI: 24.6 Code: 71286-8 Heart Rate 1: 107 bpm Heart Rate 1: 92 bpm Height: 5' SpO2: 99% Weight: 126 lbs 05/28/2017 Blood Pressure 1: 152/98 Code: 8480-6 BMI: 24.4 Code: 95721-7 Heart Rate 1: 104 bpm Height: 5' [...] Encounters Encounter Performer Loca tion Codes Date 76132 EST. PATIENT, LEVEL III Diagnosis: Essential (primary) hypertension[ICD10: I10] Diagnosis: Attention-deficit hyperactivity disorder, combined type[ICD10: F90.2] Traci Dodd MD, [facility] CPT-4: 72100 08/05/2018 97511 EST. PATIENT, LEVEL III Diagnosis: Essential (primary) hypertension[ICD10: I10] Diagnosis: Attention-deficit hyperactivity disorder, combined type[ICD10: F90.2] Traci Dodd MD, [facility] CPT-4: 85827 03/19/2018 43180 EST. PATIENT, LEVEL IV Diagnosis: Essential (primary) hypertension[ICD10: I10] Diagnosis: Attention-deficit hyperactivity disorder, combined type[ICD10: F90.2] Traci Dodd MD, [facility] CPT-4: 89076 12/09/2017 05449 EST. PATIENT, LEVEL IV Diagnosis: Essential (primary) hypertension[ICD10: I10] Diagnosis: Attention-deficit hyperactivity disorder, combined type[ICD10: F90.2] Traci Dodd MD, [facility] CPT-4: 02656 08/28/2017 70129 EST. PATIENT, LEVEL IV Diagnosis: Essential (primary) hypertension[ICD10: I10] Diagnosis: Attention-deficit hyperactivity disorder, combined type[ICD10: F90.2] Traci Dodd MD, [facility] CPT-4: 94085 07/28/2017 55847 EST. PATIENT, LEVEL IV Diagnosis: Essential (primary) hypertension[ICD10: I10] Diagnosis: Attention-deficit hyperactivity disorder, combined type[ICD10: F90.2] [facility] CPT-4: 07273 06/29/2017 OFFICE VISIT, NEW - LEVEL 3 Diagnosis: Essential (primary) hypertension[ICD10: I10] Diagnosis: Attention-deficit hyperactivity disorder, combined type[ICD10: F90.2] [facility] CPT-4: 42754 05/28/2017 Plan of Care Planned Activity Notes C odes Status Date Visit Plan: Hypertension - The rich ent [...] whom the medication was not prescribed. 08/05/2018 Patient Education: Patient Medication Summary Completed [...] not prescribed. 03/19/2018 Appointment: [phone] [facility] (15 min) Moderate 03/19/2018 Patient Education: Patient Medication Summary Completed 03/19/2018 Appointment: Traci Reddytel: [phone] (15 min) Moderate 03/18/2018 Visit Plan: Hypertension [...] medication was not prescribed. 12/09/2017 Appointment: Traci Reddytel: [facility] (15 min) Moderate 12/09/2017 Patient Education: Patient Medication Summary Completed 12/09/2017 Appointment: Traci Reddytel: [address] [facility] (15 min) Moderate 12/02/2017 Visit Plan: Hypertension [...] medication was not prescribed. 08/28/2017 Appointment: Traci Reddy: [address] [facility] (15 min) Moderate 08/28/2017 Patient Education: Patient [...] medication was not prescribed. 07/28/2017 Appointment: Traci Reddy: [address] [facility] (15 min) Moderate 07/28/2017 Patient Education: Patient Medication Summary Completed 07/28/2017 Appointment: Traci Reddy: [address] [facility] (15 min) Moderate 07/02/2017 Visit Plan: Hypertension [...] not prescribed. 06/29/2017 Appointment: Traci Reddytel: [address] [facility] (15 min) Moderate 06/29/2017 Patient Education: Patient [...] medication was not prescribed. 05/28/2017 Appointment: Traci Reddy WPtel: [facility]5 [facility] New Patient 05/28/2017 Patient Education: Patient Medication Summary Completed 05/28/2017 Appointment: Traci Reddy WPtel: [facility]5 [facility] New Patient 05/22/2017 Instructions Comment . Hypertension [...] medication was not prescribed. . Hypertension - e patient has been counseled to cut [...]
--- OUTSIDE RECORDS SUMMARY | 2019-07-19 15:40 | XMS REPORT | CCD ---
Author Author Otilio Reddy Organization Abby Dodd MD, [facility] Address [address] [place] [address] Phone Care Team Providers Care Taxation Accountant Name Role Phone PP Unavailable CCM Unavailable Summary Purpose Interface Exchange Insurance Providers Payer name Policy type / Coverage type Covered democrat ID Effective Begin Date Effective End Date Blue Cross Blue [facility] e Cross/Blue Shield [id number] 2017 Un known Family history Father Diagnosis Age At Onset Alcoholism Unknown Social History Social History Element Codes Description Effective Dates Marital status Unknown S kaye 05/28/2017 Number of children Unknown 0 05/28/[address]: 62658503 Current every day smoker 05/28/2017 Number of [...] Fill Instructions Adderall 30 mg tablet RxNorm: 041236 1 Tablet(s) PO BID 09/02/2018 10/01/2018 Active Adderall 30 mg tablet RxNorm: 125220 1 Tablet(s) PO BID 08/05/2018 09/01/2018 Inactive Adderall 30 mg tablet RxNorm: 890598 1 Tablet(s) PO BID 07/09/2018 08/04/2018 Inactive Adderall 30 mg tablet RxNorm: 851929 1 Tablet(s) PO BID 06/10/2018 07/08/2018 Inactive Adderall 30 mg tablet RxNorm: 288760 1 Tablet(s) PO BID 05/17/2018 06/09/2018 Inactive Adderall 30 mg tablet RxNorm: 777148 1 Tablet(s) PO BID 04/16/2018 05/15/2018 Inactive Adderall 30 mg tablet RxNorm: 430816 1 Tablet(s) PO BID 03/19/2018 04/15/2018 Inactive Adderall 30 mg tablet RxNorm: 367220 1 Tablet(s) PO BID 02/23/2018 03/18/2018 Inactive Adderall 30 mg tablet RxNorm: 455170 1 Tablet(s) PO BID 01/25/2018 02/22/2018 Inactive Adderall 30 mg tablet RxNorm: 360150 1 Tablet(s) PO BID 12/25/2017 01/23/2018 Inactive Adderall 30 mg tablet RxNorm: 112020 1 Tablet(s) PO BID 11/26/2017 12/24/2017 Inactive Adderall 30 mg tablet RxNorm: 843833 1 Tablet(s) PO BID 10/22/2017 11/25/2017 Inactive Adderall 30 mg tablet RxNorm: 417470 1 Tablet(s) PO BID 09/22/2017 10/21/2017 Inactive Adderall 30 mg tablet RxNorm: 647833 1 Tablet(s) PO BID 08/28/2017 09/21/2017 Inactive metoprolol tartrate 25 mg tablet RxNorm: 016074 1/2 Tablet(s) PO alfa y 07/28/2017 08/26/2017 In active Adderall 30 mg tablet RxNorm: 223650 1 Tablet(s) PO BID 06/29/2017 08/29/2017 Inactive Adderall 30 mg tablet RxNorm: 627740 1 Tablet(s) PO BID 05/28/2017 06/29/2017 Inactive Adderall 30 mg tablet RxNorm: 301668 1 Tablet(s) PO BID No Start Date [...] tachycardia 08/28/2017 None Full Exam - General 1995 Musculoskeletal gait and station Overall: normal gait [...] 1: 128/72 Code: 8480-6 BMI: 24.4 Code: 25678-1 Heart Rate 1: 105 bpm Height: 5' SpO2: 98% Weight: 125 lbs 03/19/2018 Blood Pressure 1: 128/74 Code: 8480-6 BMI: 24.8 Code: 91619-7 Heart Rate 1: 88 bpm Height: 5' SpO2: 99% Weight: 127 lbs 12/09/2017 Blood Pressure 1: 133/88 Code: 8480-6 BMI: 24.2 Code: 52478-0 Heart Rate 1: 102 bpm Height: 5' SpO2: 98% Weight: 124 lbs 08/28/2017 Blood Pressure 1: 130/86 Code: 8480-6 BMI: 24.2 Code: 04174-9 Heart Rate 1: 90 bpm Height: 5' SpO2: 98% Weight: 124 lbs 07/28/2017 Blood Pressure 1: 138/88 Code: 8480-6 BMI: 24.4 Code: 50829-4 Heart Rate 1: 105 bpm Height: 5' SpO2: 98% Weight: 125 lbs 06/29/2017 Blood Pressure 1: 180/120 Code: 8480-6 Blood Pressure 1: 158/96 Code: 8480-6 Blood Pressure 1: 148/82 Code: 8480-6 BMI: 24.6 Code: 59900-6 Heart Rate 1: 107 bpm Heart Rate 1: 92 bpm Height: 5' SpO2: 99% Weight: 126 lbs 05/28/2017 Blood Pressure 1: 152/98 Code: 8480-6 BMI: 24.4 Code: 25941-8 Heart Rate 1: 104 bpm Height: 5' [...] Encounters Encounter Performer Loca tion Codes Date 12936 EST. PATIENT, LEVEL III Diagnosis: Essential (primary) hypertension[ICD10: I10] Diagnosis: Attention-deficit hyperactivity disorder, combined type[ICD10: F90.2] Traci Dodd MD, [facility] CPT-4: 93601 08/05/2018 27045 EST. PATIENT, LEVEL III Diagnosis: Essential (primary) hypertension[ICD10: I10] Diagnosis: Attention-deficit hyperactivity disorder, combined type[ICD10: F90.2] Traci Dodd MD, [facility] CPT-4: 59339 03/19/2018 50756 EST. PATIENT, LEVEL IV Diagnosis: Essential (primary) hypertension[ICD10: I10] Diagnosis: Attention-deficit hyperactivity disorder, combined type[ICD10: F90.2] Traci Dodd MD, [facility] CPT-4: 40388 12/09/2017 57709 EST. PATIENT, LEVEL IV Diagnosis: Essential (primary) hypertension[ICD10: I10] Diagnosis: Attention-deficit hyperactivity disorder, combined type[ICD10: F90.2] Traci Dodd MD, [facility] CPT-4: 89250 08/28/2017 90446 EST. PATIENT, LEVEL IV Diagnosis: Essential (primary) hypertension[ICD10: I10] Diagnosis: Attention-deficit hyperactivity disorder, combined type[ICD10: F90.2] Traci Dodd MD, [facility] CPT-4: 81701 07/28/2017 00058 EST. PATIENT, LEVEL IV Diagnosis: Essential (primary) hypertension[ICD10: I10] Diagnosis: Attention-deficit hyperactivity disorder, combined type[ICD10: F90.2] [facility] CPT-4: 35623 06/29/2017 OFFICE VISIT, NEW - LEVEL 3 Diagnosis: Essential (primary) hypertension[ICD10: I10] Diagnosis: Attention-deficit hyperactivity disorder, combined type[ICD10: F90.2] [facility] CPT-4: 63957 05/28/2017 Plan of Care Planned Activity Notes [...] not prescribed. 08/05/2018 Appointment: Traci Reddy WPtel: [address] [place], [place] [address] (30 min) [facility] 08/05/2018 Patient Education: Patient Medication Summary Completed [...] medication was not prescribed. 03/19/2018 Appointment: Traci Reddy: [address] [place], [place] [id number] (15 min) Moderate 03/19/2018 Patient Education: Patient Medication Summary Completed 03/19/2018 Appointment: Traci Reddytel: [address] [place], [place] [phone] (15 min) Moderate 03/18/2018 Visit Plan: Hypertension [...] medication was not prescribed. 12/09/2017 Appointment: Traci Reddy: [facility]5 [facility] (15 min) Moderate 12/09/2017 Patient Education: Patient Medication Summary Completed 12/09/2017 Appointment: Traci Reddy: [address] [place], [place] [phone] (15 min) Moderate 12/02/2017 Visit Plan: Hypertension [...] the medication was not prescribed. 08/28/2017 Appointment: rTaci Reddyl: [facility]5 [facility] (15 min) Moderate 08/28/2017 Patient Education: Patient [...] was not prescribed. 07/28/2017 Appointment: Traci Reddyl: [facility] (15 min) Moderate 07/28/2017 Patient Education: Patient Medication Summary Completed 07/28/2017 Appointment: Traci Reddy[facility] [address] [facility] (15 min) Moderate 07/02/2017 Visit Plan: Hypertension [...] medication was not prescribed. 06/29/2017 Appointment: Traci Reddy: [address] [place], [place] [phone] (15 min) Moderate 06/29/2017 Patient Education: Patient [...] medication was not prescribed. 05/28/2017 Appointment: Traci Reddyl: [facility]5 [facility] New Patient 05/28/2017 Patient Education: Patient Medication Summary Completed 05/28/2017 Appointment: Traci Reddyl: [address] [place], [place] [id number] New Patient 05/22/2017 Instructions Comment . Hypertension [...] medication was not prescribed. . Hypertension - patient has been counseled to cut back [...]
--- OUTSIDE RECORDS SUMMARY | 2019-07-19 15:40 | XMS REPORT | CCD ---
Author Author Otilio Reddy Organization Abby Dodd MD, [facility] Address [address] [place] [address] Phone Care Team Providers Care Customer Support Analyst Name Role Phone PP Unavailable CCM Unavailable Summary Purpose Interface Exchange Insurance Providers Payer name Policy type / Coverage type Covered green party ID Effective Begin Date Effective End Date Blue Cross Blue [facility] e Cross/Blue Shield [id number] 2017 Un known Family history Father Diagnosis Age At Onset Alcoholism Unknown Social History Social History Element Codes Description Effective Dates Marital status Unknown S kaye 05/28/2017 Number of children Unknown 0 05/28/[address]: 99445085 Current every day smoker 05/28/2017 Number of [...] Fill Instructions Adderall 30 mg tablet RxNorm: 275087 1 Tablet(s) PO BID 09/29/2018 10/28/2018 Active Adderall 30 mg tablet RxNorm: 844102 1 Tablet(s) PO BID 09/02/2018 09/28/2018 Inactive Adderall 30 mg tablet RxNorm: 711829 1 Tablet(s) PO BID 08/05/2018 09/01/2018 Inactive Adderall 30 mg tablet RxNorm: 451329 1 Tablet(s) PO BID 07/09/2018 08/04/2018 Inactive Adderall 30 mg tablet RxNorm: 884056 1 Tablet(s) PO BID 06/10/2018 07/08/2018 Inactive Adderall 30 mg tablet RxNorm: 292245 1 Tablet(s) PO BID 05/17/2018 06/09/2018 Inactive Adderall 30 mg tablet RxNorm: 643743 1 Tablet(s) PO BID 04/16/2018 05/15/2018 Inactive Adderall 30 mg tablet RxNorm: 213200 1 Tablet(s) PO BID 03/19/2018 04/15/2018 Inactive Adderall 30 mg tablet RxNorm: 969551 1 Tablet(s) PO BID 02/23/2018 03/18/2018 Inactive Adderall 30 mg tablet RxNorm: 772018 1 Tablet(s) PO BID 01/25/2018 02/22/2018 Inactive Adderall 30 mg tablet RxNorm: 336917 1 Tablet(s) PO BID 12/25/2017 01/23/2018 Inactive Adderall 30 mg tablet RxNorm: 705422 1 Tablet(s) PO BID 11/26/2017 12/24/2017 Inactive Adderall 30 mg tablet RxNorm: 687084 1 Tablet(s) PO BID 10/22/2017 11/25/2017 Inactive Adderall 30 mg tablet RxNorm: 562832 1 Tablet(s) PO BID 09/22/2017 10/21/2017 Inactive Adderall 30 mg tablet RxNorm: 520539 1 Tablet(s) PO BID 08/28/2017 09/21/2017 Inactive metoprolol tartrate 25 mg tablet RxNorm: 797366 1/2 Tablet(s) PO alfa y 07/28/2017 08/26/2017 In active Adderall 30 mg tablet RxNorm: 885305 1 Tablet(s) PO BID 06/29/2017 08/29/2017 Inactive Adderall 30 mg tablet RxNorm: 650069 1 Tablet(s) PO BID 05/28/2017 06/29/2017 Inactive Adderall 30 mg tablet RxNorm: 444283 1 Tablet(s) PO BID No Start Date [...] clear 08/05/2018 None Full Exam - General 1995 [...] tachycardia 03/19/2018 None Full Exam - General 1995 Musculoskeletal [...] 1: 128/72 Code: 8480-6 BMI: 24.4 Code: 87136-4 Heart Rate 1: 105 bpm Height: 5' SpO2: 98% Weight: 125 lbs 03/19/2018 Blood Pressure 1: 128/74 Code: 8480-6 BMI: 24.8 Code: 67609-8 Heart Rate 1: 88 bpm Height: 5' SpO2: 99% Weight: 127 lbs 12/09/2017 Blood Pressure 1: 133/88 Code: 8480-6 BMI: 24.2 Code: 52178-8 Heart Rate 1: 102 bpm Height: 5' SpO2: 98% Weight: 124 lbs 08/28/2017 Blood Pressure 1: 130/86 Code: 8480-6 BMI: 24.2 Code: 52411-6 Heart Rate 1: 90 bpm Height: 5' SpO2: 98% Weight: 124 lbs 07/28/2017 Blood Pressure 1: 138/88 Code: 8480-6 BMI: 24.4 Code: 28765-7 Heart Rate 1: 105 bpm Height: 5' SpO2: 98% Weight: 125 lbs 06/29/2017 Blood Pressure 1: 180/120 Code: 8480-6 Blood Pressure 1: 158/96 Code: 8480-6 Blood Pressure 1: 148/82 Code: 8480-6 BMI: 24.6 Code: 46867-0 Heart Rate 1: 107 bpm Heart Rate 1: 92 bpm Height: 5' SpO2: 99% Weight: 126 lbs 05/28/2017 Blood Pressure 1: 152/98 Code: 8480-6 BMI: 24.4 Code: 52898-3 Heart Rate 1: 104 bpm Height: 5' [...] Encounters Encounter Performer Loca tion Codes Date 47634 EST. PATIENT, LEVEL III Diagnosis: Essential (primary) hypertension[ICD10: I10] Diagnosis: Attention-deficit hyperactivity disorder, combined type[ICD10: F90.2] Traci Dodd MD, [facility] CPT-4: 66067 08/05/2018 80356 EST. PATIENT, LEVEL III Diagnosis: Essential (primary) hypertension[ICD10: I10] Diagnosis: Attention-deficit hyperactivity disorder, combined type[ICD10: F90.2] Traci Dodd MD, [facility] CPT-4: 07562 03/19/2018 81859 EST. PATIENT, LEVEL IV Diagnosis: Essential (primary) hypertension[ICD10: I10] Diagnosis: Attention-deficit hyperactivity disorder, combined type[ICD10: F90.2] Traci Dodd MD, [facility] CPT-4: 36897 12/09/2017 64992 EST. PATIENT, LEVEL IV Diagnosis: Essential (primary) hypertension[ICD10: I10] Diagnosis: Attention-deficit hyperactivity disorder, combined type[ICD10: F90.2] Traci Dodd MD, [facility] CPT-4: 11340 08/28/2017 05488 EST. PATIENT, LEVEL IV Diagnosis: Essential (primary) hypertension[ICD10: I10] Diagnosis: Attention-deficit hyperactivity disorder, combined type[ICD10: F90.2] [facility] CPT-4: 65219 07/28/2017 26757 EST. PATIENT, LEVEL IV Diagnosis: Essential (primary) hypertension[ICD10: I10] Diagnosis: Attention-deficit hyperactivity disorder, combined type[ICD10: F90.2] [facility] CPT-4: 20695 06/29/2017 OFFICE VISIT, NEW - LEVEL 3 Diagnosis: Essential (primary) hypertension[ICD10: I10] Diagnosis: Attention-deficit hyperactivity disorder, combined type[ICD10: F90.2] [facility] CPT-4: 28619 05/28/2017 Plan of Care Planned Activity Notes C odes Status Date Appointment: Traci Reddy WPtel: [address] [facility] (15 min) Moderate 09/15/2018 Visit Plan: Hypertension [...] not prescribed. 08/05/2018 Appointment: [phone] ([facility] min) Complex 08/05/2018 Patient Education: Patient [...] was not prescribed. 03/19/2018 Appointment: Traci Reddy: [facility]5 [facility] (15 min) Moderate 03/19/2018 Patient Education: Patient Medication Summary Completed 03/19/2018 Appointment: Traci Reddy: [facility]7 [facility] (15 min) Moderate 03/18/2018 Visit Plan: Hypertension [...] was not prescribed. 12/09/2017 Appointment: Traci Reddy: [facility] (15 min) Moderate 12/09/2017 Patient Education: Patient Medication Summary Completed 12/09/2017 Appointment: Traci Reddy: [address] [place], [place] [address] (15 min) Moderate 12/02/2017 Visit Plan: Hypertension [...] medication was not prescribed. 08/28/2017 Appointment: Traci Reddyl: [address] [facility] (15 min) Moderate 08/28/2017 Patient Education: Patient [...] medication was not prescribed. 07/28/2017 Appointment: Tr[facility] Reddy WPtel: [phone] (15 min) Moderate 07/28/2017 Patient Education: Patient Medication Summary Completed 07/28/2017 Appointment: Traci Reddy WPtel: [phone] (15 min) Moderate 07/02/2017 Visit Plan: Hypertension [...] medication was not prescribed. 06/29/2017 Appointment: Traci Reddy WPtel: [phone] (15 min) Moderate 06/29/2017 Patient Education: Patient [...] not prescribed. 05/28/2017 Appointment: Traci Reddy WPtel: [phone] [place] New Patient 05/28/2017 Patient Education: Patient Medication Summary Completed 05/28/2017 Appointment: Traci Reddy WPtel: [phone] New Patient 05/22/2017 Instructions Comment . Hypertension [...]
--- OUTSIDE RECORDS SUMMARY | 2019-07-19 15:41 | XMS REPORT | CCD ---
Author Author Otilio Reddy Organization Abby Dodd MD, [facility] Address [address] [place] [address] Phone Care Team Providers Care Head Concierge Name Role Phone PP Unavailable CCM Unavailable Summary Purpose Interface Exchange Insurance Providers Payer name Policy type / Coverage type Covered green party ID Effective Begin Date Effective End Date Blue Cross Blue [facility] e Cross/Blue Shield [id number] 2017 Un known Family history Father Diagnosis Age At Onset Alcoholism Unknown Social History Social History Element Codes Description Effective Dates Marital status Unknown S kaye 05/28/2017 Number of children Unknown 0 05/28/[address]: 90809317 Current every day smoker 05/28/2017 Number of [...] Fill Instructions Adderall 30 mg tablet RxNorm: 327106 1 Tablet(s) PO BID 08/05/2018 09/03/2018 Active Adderall 30 mg tablet RxNorm: 820445 1 Tablet(s) PO BID 07/09/2018 08/04/2018 Inactive Adderall 30 mg tablet RxNorm: 301556 1 Tablet(s) PO BID 06/10/2018 07/08/2018 Inactive Adderall 30 mg tablet RxNorm: 269568 1 Tablet(s) PO BID 05/17/2018 06/09/2018 Inactive Adderall 30 mg tablet RxNorm: 437785 1 Tablet(s) PO BID 04/16/2018 05/15/2018 Inactive Adderall 30 mg tablet RxNorm: 328701 1 Tablet(s) PO BID 03/19/2018 04/15/2018 Inactive Adderall 30 mg tablet RxNorm: 780842 1 Tablet(s) PO BID 02/23/2018 03/18/2018 Inactive Adderall 30 mg tablet RxNorm: 412276 1 Tablet(s) PO BID 01/25/2018 02/22/2018 Inactive Adderall 30 mg tablet RxNorm: 959518 1 Tablet(s) PO BID 12/25/2017 01/23/2018 Inactive Adderall 30 mg tablet RxNorm: 051102 1 Tablet(s) PO BID 11/26/2017 12/24/2017 Inactive Adderall 30 mg tablet RxNorm: 367047 1 Tablet(s) PO BID 10/22/2017 11/25/2017 Inactive Adderall 30 mg tablet RxNorm: 876771 1 Tablet(s) PO BID 09/22/2017 10/21/2017 Inactive Adderall 30 mg tablet RxNorm: 497083 1 Tablet(s) PO BID 08/28/2017 09/21/2017 Inactive metoprolol tartrate 25 mg tablet RxNorm: 903522 1/2 Tablet(s) PO alfa y 07/28/2017 08/26/2017 In active Adderall 30 mg tablet RxNorm: 632132 1 Tablet(s) PO BID 06/29/2017 08/29/2017 Inactive Adderall 30 mg tablet RxNorm: 470616 1 Tablet(s) PO BID 05/28/2017 06/29/2017 Inactive Adderall 30 mg tablet RxNorm: 368217 1 Tablet(s) PO BID No Start Date [...] 1: 128/72 Code: 8480-6 BMI: 24.4 Code: 07829-7 Heart Rate 1: 105 bpm Height: 5' SpO2: 98% Weight: 125 lbs 03/19/2018 Blood Pressure 1: 128/74 Code: 8480-6 BMI: 24.8 Code: 63007-6 Heart Rate 1: 88 bpm Height: 5' SpO2: 99% Weight: 127 lbs 12/09/2017 Blood Pressure 1: 133/88 Code: 8480-6 BMI: 24.2 Code: 14538-3 Heart Rate 1: 102 bpm Height: 5' SpO2: 98% Weight: 124 lbs 08/28/2017 Blood Pressure 1: 130/86 Code: 8480-6 BMI: 24.2 Code: 98248-0 Heart Rate 1: 90 bpm Height: 5' SpO2: 98% Weight: 124 lbs 07/28/2017 Blood Pressure 1: 138/88 Code: 8480-6 BMI: 24.4 Code: 56827-5 Heart Rate 1: 105 bpm Height: 5' SpO2: 98% Weight: 125 lbs 06/29/2017 Blood Pressure 1: 180/120 Code: 8480-6 Blood Pressure 1: 158/96 Code: 8480-6 Blood Pressure 1: 148/82 Code: 8480-6 BMI: 24.6 Code: 56740-8 Heart Rate 1: 107 bpm Heart Rate 1: 92 bpm Height: 5' SpO2: 99% Weight: 126 lbs 05/28/2017 Blood Pressure 1: 152/98 Code: 8480-6 BMI: 24.4 Code: 71016-5 Heart Rate 1: 104 bpm Height: 5' [...] Encounters Encounter Performer Loca tion Codes Date 42124 EST. PATIENT, LEVEL III Diagnosis: Essential (primary) hypertension[ICD10: I10] Diagnosis: Attention-deficit hyperactivity disorder, combined type[ICD10: F90.2] Traci Dodd MD, [facility] CPT-4: 98973 08/05/2018 02666 EST. PATIENT, LEVEL III Diagnosis: Essential (primary) hypertension[ICD10: I10] Diagnosis: Attention-deficit hyperactivity disorder, combined type[ICD10: F90.2] Traci Dodd MD, [facility] CPT-4: 22453 03/19/2018 35790 EST. PATIENT, LEVEL IV Diagnosis: Essential (primary) hypertension[ICD10: I10] Diagnosis: Attention-deficit hyperactivity disorder, combined type[ICD10: F90.2] Traci Dodd MD, [facility] CPT-4: 38184 12/09/2017 39072 EST. PATIENT, LEVEL IV Diagnosis: Essential (primary) hypertension[ICD10: I10] Diagnosis: Attention-deficit hyperactivity disorder, combined type[ICD10: F90.2] Traci Dodd MD, [facility] CPT-4: 59083 08/28/2017 67630 EST. PATIENT, LEVEL IV Diagnosis: Essential (primary) hypertension[ICD10: I10] Diagnosis: Attention-deficit hyperactivity disorder, combined type[ICD10: F90.2] Traci Dodd MD, [facility] CPT-4: 46449 07/28/2017 24478 EST. PATIENT, LEVEL IV Diagnosis: Essential (primary) hypertension[ICD10: I10] Diagnosis: Attention-deficit hyperactivity disorder, combined type[ICD10: F90.2] [facility] CPT-4: 94101 06/29/2017 OFFICE VISIT, NEW - LEVEL 3 Diagnosis: Essential (primary) hypertension[ICD10: I10] Diagnosis: Attention-deficit hyperactivity disorder, combined type[ICD10: F90.2] [facility] CPT-4: 97909 05/28/2017 Plan of Care Planned Activity Notes [...] prescribed. 03/19/2018 Appointment: [facility] [facility] (15 min) Moderate 03/19/2018 Patient Education: Patient Medication Summary Completed 03/19/2018 Appointment: [facility] [facility] (15 min) Moderate 03/18/2018 Visit Plan: Hypertension [...] not prescribed. 12/09/2017 Appointment: [facility] (15 min) Moderate 12/09/2017 Patient Education: Patient Medication Summary Completed 12/09/2017 Appointment: Traci Reddytel: [address] [facility] (15 min) Moderate 12/02/2017 Visit Plan: Hypertension [...] not prescribed. 08/28/2017 Appointment: Traci Reddy: [address] [facility] (15 min) Moderate 08/28/2017 Patient Education: Patient [...] not prescribed. 07/28/2017 Appointment: Traci Reddy: [address] [facility] (15 min) Moderate 07/28/2017 Patient Education: Patient Medication Summary Completed 07/28/2017 Appointment: Traci Reddy: [address] [facility] (15 min) Moderate 07/02/2017 Visit Plan: Hypertension [...] not prescribed. 06/29/2017 Appointment: Traci Reddytel: [address] [facility] (15 min) Moderate 06/29/2017 Patient Education: Patient [...] not prescribed. 05/28/2017 Appointment: Traci Reddy WPtel: [facility]5 [facility] New Patient 05/28/2017 Patient Education: Patient Medication Summary Completed 05/28/2017 Appointment: Traci Reddy WPtel: [facility]5 [facility] New Patient 05/22/2017 Instructions Comment . Hypertension [...]
--- OUTSIDE RECORDS SUMMARY | 2019-07-19 15:41 | XMS REPORT | CCD ---
Author Author Otilio Reddy Organization Abby Dodd MD, [facility] Address [address] [place] [address] Phone Care Team Providers Care E Commerce Solution Architect Name Role Phone PP Unavailable CCM Unavailable Summary Purpose Interface Exchange Insurance Providers Payer name Policy type / Coverage type Covered green party ID Effective Begin Date Effective End Date Blue Cross Blue [facility] e Cross/Blue Shield [id number] 2017 Un known Family history Father Diagnosis Age At Onset Alcoholism Unknown Social History Social History Element Codes Description Effective Dates Marital status Unknown S kaye 05/28/2017 Number of children Unknown 0 05/28/[address]: 58749560 Current every day smoker 05/28/2017 Number of [...] Fill Instructions Adderall 30 mg tablet RxNorm: 170415 1 Tablet(s) PO BID 07/09/2018 08/07/2018 Active Adderall 30 mg tablet RxNorm: 920832 1 Tablet(s) PO BID 06/10/2018 07/08/2018 Inactive Adderall 30 mg tablet RxNorm: 550434 1 Tablet(s) PO BID 05/17/2018 06/09/2018 Inactive Adderall 30 mg tablet RxNorm: 127201 1 Tablet(s) PO BID 04/16/2018 05/15/2018 Inactive Adderall 30 mg tablet RxNorm: 221287 1 Tablet(s) PO BID 03/19/2018 04/15/2018 Inactive Adderall 30 mg tablet RxNorm: 799432 1 Tablet(s) PO BID 02/23/2018 03/18/2018 Inactive Adderall 30 mg tablet RxNorm: 079932 1 Tablet(s) PO BID 01/25/2018 02/22/2018 Inactive Adderall 30 mg tablet RxNorm: 241509 1 Tablet(s) PO BID 12/25/2017 01/23/2018 Inactive Adderall 30 mg tablet RxNorm: 592071 1 Tablet(s) PO BID 11/26/2017 12/24/2017 Inactive Adderall 30 mg tablet RxNorm: 139902 1 Tablet(s) PO BID 10/22/2017 11/25/2017 Inactive Adderall 30 mg tablet RxNorm: 883719 1 Tablet(s) PO BID 09/22/2017 10/21/2017 Inactive Adderall 30 mg tablet RxNorm: 029956 1 Tablet(s) PO BID 08/28/2017 09/21/2017 Inactive metoprolol tartrate 25 mg tablet RxNorm: 993497 1/2 Tablet(s) PO alfa y 07/28/2017 08/26/2017 In active Adderall 30 mg tablet RxNorm: 557061 1 Tablet(s) PO BID 06/29/2017 08/29/2017 Inactive Adderall 30 mg tablet RxNorm: 777006 1 Tablet(s) PO BID 05/28/2017 06/29/2017 Inactive Adderall 30 mg tablet RxNorm: 978475 1 Tablet(s) PO BID No Start Date 05/27/2017 Inactive Medication Administered No Medication Administered data Immunizations No Immunization data Assessments Condition Codes Effectiv e Dates Essential (primary) hypertension ICD -10: I10 ICD-9: 401.1 03/19/2018 Attention-deficit hyperactivity disorder, combined typ e ICD- 10: F90.2 ICD-9: 314.01 03/19/2018 Reason For Visit Reason For Visit Effective Dates Notes medication follow up 03/19/2018 medication follow up 12/09/2017 medication follow up 08/28/2017 medication follow up 07/28/2017 medication follow up 06/29/2017 medication follow up 05/28/2017 Results No Results data Review of Systems System Result Effective Dates Constitutional No recent illness 03/19/2018 Constitutional No [...] distress 08/28/2017 None Full Exam - General 1995 Constitutional general appearance Overall: well nourished 08/28/2017 None Full Exam - General 1994 Eyes conjunctiva/eyelids Overall: conjunctiva clear 08/28/2017 None Full Exam - General 1995 Eyes conjunctiva/eyelids Overall: cornea clear 08/28/2017 None Full Exam - General 1995 Eyes conjunctiva/eyelids Overall: eyelids normal 08/28/2017 None [...] lips 06/29/2017 None Full Exam - General 1995 Ears/Nose/Throat [...] No Procedures data Vital Signs Date Vital 03/19/2018 Blood Pressure 1: 128/74 Code: 8480-6 BMI: 24.8 Code: 83233-3 Heart Rate 1: 88 bpm Height: 5' SpO2: 99% Weight: 127 lbs 12/09/2017 Blood Pressure 1: 133/88 Code: 8480-6 BMI: 24.2 Code: 32398-4 Heart Rate 1: 102 bpm Height: 5' SpO2: 98% Weight: 124 lbs 08/28/2017 Blood Pressure 1: 130/86 Code: 8480-6 BMI: 24.2 Code: 58602-4 Heart Rate 1: 90 bpm Height: 5' SpO2: 98% Weight: 124 lbs 07/28/2017 Blood Pressure 1: 138/88 Code: 8480-6 BMI: 24.4 Code: 96501-2 Heart Rate 1: 105 bpm Height: 5' SpO2: 98% Weight: 125 lbs 06/29/2017 Blood Pressure 1: 180/120 Code: 8480-6 Blood Pressure 1: 158/96 Code: 8480-6 Blood Pressure 1: 148/82 Code: 8480-6 BMI: 24.6 Code: 17486-7 Heart Rate 1: 107 bpm Heart Rate 1: 92 bpm Height: 5' SpO2: 99% Weight: 126 lbs 05/28/2017 Blood Pressure 1: 152/98 Code: 8480-6 BMI: 24.4 Code: 94217-6 Heart Rate 1: 104 bpm Height: 5' SpO2: 97% Weight: 125 lbs Functional Status No Functional Status data History of Present Illness Symptom Name Status Resu lt Effective Date Notes Additional Comments me dication use 03/19/2018 None [...] Encounters Encounter Performer Loca tion Codes Date 25678 EST. PATIENT, LEVEL III Diagnosis: Essential (primary) hypertension[ICD10: I10] Diagnosis: Attention-deficit hyperactivity disorder, combined type[ICD10: F90.2] Traci Dodd MD, [facility] CPT-4: 66656 03/19/2018 16828 EST. PATIENT, LEVEL IV Diagnosis: Essential (primary) hypertension[ICD10: I10] Diagnosis: Attention-deficit hyperactivity disorder, combined type[ICD10: F90.2] Traci Dodd MD, [facility] CPT-4: 22661 12/09/2017 98985 EST. PATIENT, LEVEL IV Diagnosis: Essential (primary) hypertension[ICD10: I10] Diagnosis: Attention-deficit hyperactivity disorder, combined type[ICD10: F90.2] Traci Dodd MD, [facility] CPT-4: 84647 08/28/2017 14614 EST. PATIENT, LEVEL IV Diagnosis: Essential (primary) hypertension[ICD10: I10] Diagnosis: Attention-deficit hyperactivity disorder, combined type[ICD10: F90.2] [facility] CPT-4: 07529 07/28/2017 00219 EST. PATIENT, LEVEL IV Diagnosis: Essential (primary) hypertension[ICD10: I10] Diagnosis: Attention-deficit hyperactivity disorder, combined type[ICD10: F90.2] [facility] CPT-4: 66267 06/29/2017 OFFICE VISIT, NEW - LEVEL 3 Diagnosis: Essential (primary) hypertension[ICD10: I10] Diagnosis: Attention-deficit hyperactivity disorder, combined type[ICD10: F90.2] [facility] CPT-4: 09215 05/28/2017 Plan of Care Planned Activity Notes [...] not prescribed. 03/19/2018 Appointment: Traci Reddy WPtel: [address] [place], [place] [address] (15 min) Moderate 03/19/2018 Patient Education: Patient Medication Summary Completed 03/19/2018 Appointment: Traci Reddy WPtel: [address] [place], [place] [address] (15 min) Moderate 03/18/2018 Visit Plan: Hypertension [...] not prescribed. 12/09/2017 Appointment: Traci Reddy WPtel: [facility]5 [facility] (15 min) Moderate 12/09/2017 Patient Education: Patient Medication Summary Completed 12/09/2017 Appointment: Traci Reddy WPtel: [facility]5 [facility] (15 min) Moderate 12/02/2017 Visit Plan: Hypertension [...] medication was not prescribed. 08/28/2017 Appointment: Traci Reddytel: [facility]5 [facility] (15 min) Moderate 08/28/2017 Patient Education: Patient [...] not prescribed. 07/28/2017 Appointment: Traci Reddy WPtel: [facility]7 [facility] (15 min) Moderate 07/28/2017 Patient Education: Patient Medication Summary Completed 07/28/2017 Appointment: Traci Reddy WPtel: [facility] [facility] (15 min) Moderate 07/02/2017 Visit Plan: Hypertension [...] prescribed. 06/29/2017 Appointment: Traci Reddy WPtel: [facility] [facility] (15 min) Moderate 06/29/2017 Patient Education: Patient [...] not prescribed. 05/28/2017 Appointment: Traci Reddy WPtel: [facility]5 [facility] New Patient 05/28/2017 Patient Education: Patient Medication Summary Completed 05/28/2017 Appointment: Traci Reddy WPtel: [facility]5 [facility] New Patient 05/22/2017 Instructions Comment . [...]
--- OUTSIDE RECORDS SUMMARY | 2019-07-19 15:42 | XMS REPORT | CCD ---
Author Author Otilio Reddy Organization Abby Dodd MD, [facility] Address [address] [place] [address] Phone Care Team Providers Care Adult Education Manager Name Role Phone PP Unavailable CCM Unavailable Summary Purpose Interface Exchange Insurance Providers Payer name Policy type / Coverage type Covered alliance party ID Effective Begin Date Effective End Date Blue Cross Blue [facility] e Cross/Blue Shield [id number] 2017 Un known Family history Father Diagnosis Age At Onset Alcoholism Unknown Social History Social History Element Codes Description Effective Dates Marital status Unknown S kaye 05/28/2017 Number of children Unknown 0 05/28/[address]: 20690706 Current every day smoker 05/28/2017 Number of [...] Fill Instructions Adderall 30 mg tablet RxNorm: 432642 1 Tablet(s) PO BID 05/17/2018 06/15/2018 Active Adderall 30 mg tablet RxNorm: 174361 1 Tablet(s) PO BID 04/16/2018 05/15/2018 Inactive Adderall 30 mg tablet RxNorm: 705634 1 Tablet(s) PO BID 03/19/2018 04/15/2018 Inactive Adderall 30 mg tablet RxNorm: 434574 1 Tablet(s) PO BID 02/23/2018 03/18/2018 Inactive Adderall 30 mg tablet RxNorm: 877308 1 Tablet(s) PO BID 01/25/2018 02/22/2018 Inactive Adderall 30 mg tablet RxNorm: 480793 1 Tablet(s) PO BID 12/25/2017 01/23/2018 Inactive Adderall 30 mg tablet RxNorm: 668441 1 Tablet(s) PO BID 11/26/2017 12/24/2017 Inactive Adderall 30 mg tablet RxNorm: 524437 1 Tablet(s) PO BID 10/22/2017 11/25/2017 Inactive Adderall 30 mg tablet RxNorm: 580054 1 Tablet(s) PO BID 09/22/2017 10/21/2017 Inactive Adderall 30 mg tablet RxNorm: 100775 1 Tablet(s) PO BID 08/28/2017 09/21/2017 Inactive metoprolol tartrate 25 mg tablet RxNorm: 192366 1/2 Tablet(s) PO alfa y 07/28/2017 08/26/2017 In active Adderall 30 mg tablet RxNorm: 553230 1 Tablet(s) PO BID 06/29/2017 08/29/2017 Inactive Adderall 30 mg tablet RxNorm: 274535 1 Tablet(s) PO BID 05/28/2017 06/29/2017 Inactive Adderall 30 mg tablet RxNorm: 117238 1 Tablet(s) PO BID No Start Date [...] normal 08/28/2017 None Full Exam - General 1995 Ears/Nose/Throat lips/teeth/gingiva Overall: benign lips 08/28/2017 None [...] normal 07/28/2017 None Full Exam - General 1995 Ears/Nose/Throat lips/teeth/gingiva Overall: benign lips 07/28/2017 None [...] 1: 128/74 Code: 8480-6 BMI: 24.8 Code: 01620-6 Heart Rate 1: 88 bpm Height: 5' SpO2: 99% Weight: 127 lbs 12/09/2017 Blood Pressure 1: 133/88 Code: 8480-6 BMI: 24.2 Code: 39489-4 Heart Rate 1: 102 bpm Height: 5' SpO2: 98% Weight: 124 lbs 08/28/2017 Blood Pressure 1: 130/86 Code: 8480-6 BMI: 24.2 Code: 29543-6 Heart Rate 1: 90 bpm Height: 5' SpO2: 98% Weight: 124 lbs 07/28/2017 Blood Pressure 1: 138/88 Code: 8480-6 BMI: 24.4 Code: 70384-0 Heart Rate 1: 105 bpm Height: 5' SpO2: 98% Weight: 125 lbs 06/29/2017 Blood Pressure 1: 180/120 Code: 8480-6 Blood Pressure 1: 158/96 Code: 8480-6 Blood Pressure 1: 148/82 Code: 8480-6 BMI: 24.6 Code: 08625-5 Heart Rate 1: 107 bpm Heart Rate 1: 92 bpm Height: 5' SpO2: 99% Weight: 126 lbs 05/28/2017 Blood Pressure 1: 152/98 Code: 8480-6 BMI: 24.4 Code: 19052-7 Heart Rate 1: 104 bpm Height: 5' [...] Encounters Encounter Performer Loca tion Codes Date 13432 EST. PATIENT, LEVEL III Diagnosis: Essential (primary) hypertension[ICD10: I10] Diagnosis: Attention-deficit hyperactivity disorder, combined type[ICD10: F90.2] Traci Dodd MD, [facility] CPT-4: 10354 03/19/2018 57099 EST. PATIENT, LEVEL IV Diagnosis: Essential (primary) hypertension[ICD10: I10] Diagnosis: Attention-deficit hyperactivity disorder, combined type[ICD10: F90.2] Traci Dodd MD, [facility] CPT-4: 46110 12/09/2017 81118 EST. PATIENT, LEVEL IV Diagnosis: Essential (primary) hypertension[ICD10: I10] Diagnosis: Attention-deficit hyperactivity disorder, combined type[ICD10: F90.2] Traci Dodd MD, [facility] CPT-4: 38211 08/28/2017 45021 EST. PATIENT, LEVEL IV Diagnosis: Essential (primary) hypertension[ICD10: I10] Diagnosis: Attention-deficit hyperactivity disorder, combined type[ICD10: F90.2] Traci Dodd MD, [facility] CPT-4: 59879 07/28/2017 65741 EST. PATIENT, LEVEL IV Diagnosis: Essential (primary) hypertension[ICD10: I10] Diagnosis: Attention-deficit hyperactivity disorder, combined type[ICD10: F90.2] [facility] CPT-4: 38462 06/29/2017 OFFICE VISIT, NEW - LEVEL 3 Diagnosis: Essential (primary) hypertension[ICD10: I10] Diagnosis: Attention-deficit hyperactivity disorder, combined type[ICD10: F90.2] [facility] CPT-4: 86371 05/28/2017 Plan of Care Planned Activity Notes [...] not prescribed. 03/19/2018 Appointment: Traci Reddy WPtel: [facility]5 [facility] (15 min) Moderate 03/19/2018 Patient Education: Patient Medication Summary Completed 03/19/2018 Appointment: Traci Reddy WPtel: [facility]5 [facility] (15 min) Moderate 03/18/2018 Visit Plan: Hypertension [...] not prescribed. 12/09/2017 Appointment: Traci Reddy WPtel: [address] [facility] (15 min) Moderate 12/09/2017 Patient Education: Patient Medication Summary Completed 12/09/2017 Appointment: Traci Reddy WPtel: [address] [facility] (15 min) Moderate 12/02/2017 Visit Plan: Hypertension [...] prescribed. 08/28/2017 Appointment: [facility]el[facility] (15 min) Moderate 08/28/2017 Patient Education: Patient [...] not prescribed. 07/28/2017 Appointment: Traci Reddy WPtel: [facility]3 [facility] (15 min) Moderate 07/28/2017 Patient Education: Patient Medication Summary Completed 07/28/2017 Appointment: Traci Reddytel: [address] [facility] (15 min) Moderate 07/02/2017 Visit Plan: Hypertension [...] was not prescribed. 06/29/2017 Appointment: Traci Reddytel: [facility] (15 min) Moderate 06/29/2017 Patient Education: Patient [...] was not prescribed. 05/28/2017 Appointment: Traci Reddyl[facility] New Patient 05/28/2017 Patient Education: Patient Medication Summary Completed 05/28/2017 App[facility]ment: Traci Reddyl[facility] [facility] Patient 05/22/2017 Instructions Comment . Hypertension [...]
--- OUTSIDE RECORDS SUMMARY | 2019-07-19 15:42 | XMS REPORT | CCD ---
Author Author Otilio Reddy Organization Abby Dodd MD, [facility] Address [address] [place] [address] Phone Care Team Providers Care Residential Carpet Installer Name Role Phone PP Unavailable CCM Unavailable Summary Purpose Interface Exchange Insurance Providers Payer name Policy type / Coverage type Covered republican ID Effective Begin Date Effective End Date Blue Cross Blue [facility] e Cross/Blue Shield [id number] 2017 Un known Family history Father Diagnosis Age At Onset Alcoholism Unknown Social History Social History Element Codes Description Effective Dates Marital status Unknown S kaye 05/28/2017 Number of children Unknown 0 05/28/[address]: 78733339 Current every day smoker 05/28/2017 Number of [...] Fill Instructions Adderall 30 mg tablet RxNorm: 308046 1 Tablet(s) PO BID 04/16/2018 05/15/2018 Active Adderall 30 mg tablet RxNorm: 027415 1 Tablet(s) PO BID 03/19/2018 04/15/2018 Inactive Adderall 30 mg tablet RxNorm: 586312 1 Tablet(s) PO BID 02/23/2018 03/18/2018 Inactive Adderall 30 mg tablet RxNorm: 316912 1 Tablet(s) PO BID 01/25/2018 02/22/2018 Inactive Adderall 30 mg tablet RxNorm: 530631 1 Tablet(s) PO BID 12/25/2017 01/23/2018 Inactive Adderall 30 mg tablet RxNorm: 387038 1 Tablet(s) PO BID 11/26/2017 12/24/2017 Inactive Adderall 30 mg tablet RxNorm: 010604 1 Tablet(s) PO BID 10/22/2017 11/25/2017 Inactive Adderall 30 mg tablet RxNorm: 745482 1 Tablet(s) PO BID 09/22/2017 10/21/2017 Inactive Adderall 30 mg tablet RxNorm: 142622 1 Tablet(s) PO BID 08/28/2017 09/21/2017 Inactive metoprolol tartrate 25 mg tablet RxNorm: 788856 1/2 Tablet(s) PO alfa y 07/28/2017 08/26/2017 In active Adderall 30 mg tablet RxNorm: 427382 1 Tablet(s) PO BID 06/29/2017 08/29/2017 Inactive Adderall 30 mg tablet RxNorm: 938498 1 Tablet(s) PO BID 05/28/2017 06/29/2017 Inactive Adderall 30 mg tablet RxNorm: 039252 1 Tablet(s) PO BID No Start Date [...] 1: 128/74 Code: 8480-6 BMI: 24.8 Code: 77875-1 Heart Rate 1: 88 bpm Height: 5' SpO2: 99% Weight: 127 lbs 12/09/2017 Blood Pressure 1: 133/88 Code: 8480-6 BMI: 24.2 Code: 02578-8 Heart Rate 1: 102 bpm Height: 5' SpO2: 98% Weight: 124 lbs 08/28/2017 Blood Pressure 1: 130/86 Code: 8480-6 BMI: 24.2 Code: 44010-8 Heart Rate 1: 90 bpm Height: 5' SpO2: 98% Weight: 124 lbs 07/28/2017 Blood Pressure 1: 138/88 Code: 8480-6 BMI: 24.4 Code: 87112-4 Heart Rate 1: 105 bpm Height: 5' SpO2: 98% Weight: 125 lbs 06/29/2017 Blood Pressure 1: 180/120 Code: 8480-6 Blood Pressure 1: 148/82 Code: 8480-6 Blood Pressure 1: 158/96 Code: 8480-6 BMI: 24.6 Code: 97877-5 Heart Rate 1: 107 bpm Heart Rate 1: 92 bpm Height: 5' SpO2: 99% Weight: 126 lbs 05/28/2017 Blood Pressure 1: 152/98 Code: 8480-6 BMI: 24.4 Code: 23156-8 Heart Rate 1: 104 bpm Height: 5' [...] Encounters Encounter Performer Loca tion Codes Date 13469 EST. PATIENT, LEVEL III Diagnosis: Essential (primary) hypertension[ICD10: I10] Diagnosis: Attention-deficit hyperactivity disorder, combined type[ICD10: F90.2] Traci Dodd MD, [facility] CPT-4: 16515 03/19/2018 88245 EST. PATIENT, LEVEL IV Diagnosis: Essential (primary) hypertension[ICD10: I10] Diagnosis: Attention-deficit hyperactivity disorder, combined type[ICD10: F90.2] Traci Dodd MD, [facility] CPT-4: 79974 12/09/2017 95757 EST. PATIENT, LEVEL IV Diagnosis: Essential (primary) hypertension[ICD10: I10] Diagnosis: Attention-deficit hyperactivity disorder, combined type[ICD10: F90.2] Traci Dodd MD, [facility] CPT-4: 43397 08/28/2017 50021 EST. PATIENT, LEVEL IV Diagnosis: Essential (primary) hypertension[ICD10: I10] Diagnosis: Attention-deficit hyperactivity disorder, combined type[ICD10: F90.2] Traci Dodd MD, [facility] CPT-4: 66097 07/28/2017 19176 EST. PATIENT, LEVEL IV Diagnosis: Essential (primary) hypertension[ICD10: I10] Diagnosis: Attention-deficit hyperactivity disorder, combined type[ICD10: F90.2] [facility] CPT-4: 72023 06/29/2017 OFFICE VISIT, NEW - LEVEL 3 Diagnosis: Essential (primary) hypertension[ICD10: I10] Diagnosis: Attention-deficit hyperactivity disorder, combined type[ICD10: F90.2] [facility] CPT-4: 62458 05/28/2017 Plan of Care Planned Activity Notes [...] not prescribed. 03/19/2018 Appointment: Traci Reddy WPtel: [facility]5 [facility] (15 min) Moderate 03/19/2018 Patient Education: Patient Medication Summary Completed 03/19/2018 Appointment: Traci Reddy WPtel[facility] ([facility] min) Moderate 03/18/2018 Visit Plan: Hypertension [...] was not prescribed. 12/09/2017 Appointment: Traci Reddytel: [facility]5 [facility] (15 min) Moderate 12/09/2017 Patient Education: Patient Medication Summary Completed 12/09/2017 Appointment: Traci Reddytel: [address] [place], [place] [address] (15 min) Moderate 12/02/2017 Visit Plan: Hypertension [...] was not prescribed. 08/28/2017 Appointment: Traci Reddytel: [facility]5 [facility] (15 min) Moderate 08/28/2017 Patient Education: [...] not prescribed. 07/28/2017 Appointment: Traci Reddy: [address] [facility] (15 min) Moderate 07/28/2017 Patient Education: Patient Medication Summary Completed 07/28/2017 Appointment: Traci Reddy: [address] [facility] (15 min) Moderate 07/02/2017 Visit Plan: Hypertension [...] was not prescribed. 06/29/2017 Appointment: Traci Reddy: [address] [facility] (15 min) Moderate 06/29/2017 Patient Education: Patient [...] medication was not prescribed. 05/28/2017 Appointment: Traci Reddy: [address] [facility] New Patient 05/28/2017 Patient Education: Patient Medication Summary Completed 05/28/2017 Appointment: Traci Reddy: [address] [facility] New Patient 05/22/2017 Instructions Comment . Hypertension [...]
--- OUTSIDE RECORDS SUMMARY | 2019-07-19 15:42 | XMS REPORT | CCD ---
Author Author Otilio Reddy Organization Abby Dodd MD, [facility] Address [address] [place] [address] Phone Care Team Providers Care Chief Investigator Name Role Phone PP Unavailable CCM Unavailable Summary Purpose Interface Exchange Insurance Providers Payer name Policy type / Coverage type Covered republican ID Effective Begin Date Effective End Date Blue Cross Blue [facility] e Cross/Blue Shield [id number] 2017 Un known Family history Father Diagnosis Age At Onset Alcoholism Unknown Social History Social History Element Codes Description Effective Dates Marital status Unknown S kaye 05/28/2017 Number of children Unknown 0 05/28/[address]: 10713259 Current every day smoker 05/28/2017 Number of [...] Fill Instructions Adderall 30 mg tablet RxNorm: 547385 1 Tablet(s) PO BID 06/10/2018 07/09/2018 Active Adderall 30 mg tablet RxNorm: 270178 1 Tablet(s) PO BID 05/17/2018 06/09/2018 Inactive Adderall 30 mg tablet RxNorm: 888934 1 Tablet(s) PO BID 04/16/2018 05/15/2018 Inactive Adderall 30 mg tablet RxNorm: 592484 1 Tablet(s) PO BID 03/19/2018 04/15/2018 Inactive Adderall 30 mg tablet RxNorm: 229328 1 Tablet(s) PO BID 02/23/2018 03/18/2018 Inactive Adderall 30 mg tablet RxNorm: 687495 1 Tablet(s) PO BID 01/25/2018 02/22/2018 Inactive Adderall 30 mg tablet RxNorm: 035017 1 Tablet(s) PO BID 12/25/2017 01/23/2018 Inactive Adderall 30 mg tablet RxNorm: 300344 1 Tablet(s) PO BID 11/26/2017 12/24/2017 Inactive Adderall 30 mg tablet RxNorm: 440392 1 Tablet(s) PO BID 10/22/2017 11/25/2017 Inactive Adderall 30 mg tablet RxNorm: 590611 1 Tablet(s) PO BID 09/22/2017 10/21/2017 Inactive Adderall 30 mg tablet RxNorm: 067342 1 Tablet(s) PO BID 08/28/2017 09/21/2017 Inactive metoprolol tartrate 25 mg tablet RxNorm: 254784 1/2 Tablet(s) PO alfa y 07/28/2017 08/26/2017 In active Adderall 30 mg tablet RxNorm: 463845 1 Tablet(s) PO BID 06/29/2017 08/29/2017 Inactive Adderall 30 mg tablet RxNorm: 422481 1 Tablet(s) PO BID 05/28/2017 06/29/2017 Inactive Adderall 30 mg tablet RxNorm: 531938 1 Tablet(s) PO BID No Start Date [...] nourished 08/28/2017 None Full Exam - General 1995 Eyes conjunctiva/eyelids Overall: conjunctiva clear 08/28/2017 None [...] lips 07/28/2017 None Full Exam - General 1995 [...] normal 06/29/2017 None Full Exam - General 1995 Ears/Nose/Throat lips/teeth/gingiva Overall: benign lips 06/29/2017 None Full Exam - General 1995 Ears/Nose/Throat oral cavity/pharynx/larynx Overall: oral mucosa clear 06/29/2017 None Full Exam - General 1995 [...] 1: 128/74 Code: 8480-6 BMI: 24.8 Code: 28000-7 Heart Rate 1: 88 bpm Height: 5' SpO2: 99% Weight: 127 lbs 12/09/2017 Blood Pressure 1: 133/88 Code: 8480-6 BMI: 24.2 Code: 89695-4 Heart Rate 1: 102 bpm Height: 5' SpO2: 98% Weight: 124 lbs 08/28/2017 Blood Pressure 1: 130/86 Code: 8480-6 BMI: 24.2 Code: 90772-3 Heart Rate 1: 90 bpm Height: 5' SpO2: 98% Weight: 124 lbs 07/28/2017 Blood Pressure 1: 138/88 Code: 8480-6 BMI: 24.4 Code: 32628-6 Heart Rate 1: 105 bpm Height: 5' SpO2: 98% Weight: 125 lbs 06/29/2017 Blood Pressure 1: 180/120 Code: 8480-6 Blood Pressure 1: 158/96 Code: 8480-6 Blood Pressure 1: 148/82 Code: 8480-6 BMI: 24.6 Code: 11690-1 Heart Rate 1: 107 bpm Heart Rate 1: 92 bpm Height: 5' SpO2: 99% Weight: 126 lbs 05/28/2017 Blood Pressure 1: 152/98 Code: 8480-6 BMI: 24.4 Code: 17866-6 Heart Rate 1: 104 bpm Height: 5' [...] Encounters Encounter Performer Loca tion Codes Date 39172 EST. PATIENT, LEVEL III Diagnosis: Essential (primary) hypertension[ICD10: I10] Diagnosis: Attention-deficit hyperactivity disorder, combined type[ICD10: F90.2] Traci Dodd MD, [facility] CPT-4: 55474 03/19/2018 84110 EST. PATIENT, LEVEL IV Diagnosis: Essential (primary) hypertension[ICD10: I10] Diagnosis: Attention-deficit hyperactivity disorder, combined type[ICD10: F90.2] Traci Dodd MD, [facility] CPT-4: 26891 12/09/2017 88497 EST. PATIENT, LEVEL IV Diagnosis: Essential (primary) hypertension[ICD10: I10] Diagnosis: Attention-deficit hyperactivity disorder, combined type[ICD10: F90.2] Traci Dodd MD, [facility] CPT-4: 02666 08/28/2017 62698 EST. PATIENT, LEVEL IV Diagnosis: Essential (primary) hypertension[ICD10: I10] Diagnosis: Attention-deficit hyperactivity disorder, combined type[ICD10: F90.2] [facility] CPT-4: 50441 07/28/2017 45732 EST. PATIENT, LEVEL IV Diagnosis: Essential (primary) hypertension[ICD10: I10] Diagnosis: Attention-deficit hyperactivity disorder, combined type[ICD10: F90.2] [facility] CPT-4: 92665 06/29/2017 OFFICE VISIT, NEW - LEVEL 3 Diagnosis: Essential (primary) hypertension[ICD10: I10] Diagnosis: Attention-deficit hyperactivity disorder, combined type[ICD10: F90.2] [facility] CPT-4: 33052 05/28/2017 Plan of Care Planned Activity Notes [...] not prescribed. 03/19/2018 Appointment: Traci Reddy WPtel: [facility] (15 min) Moderate 03/19/2018 Patient Education: Patient Medication Summary Completed 03/19/2018 Appointment: Traci Reddy WPtel[facility] [address] [facility] (15 min) Moderate 03/18/2018 Visit Plan: Hypertension [...] was not prescribed. 12/09/2017 Appointment: Traci Reddytel: [facility]5 [facility] (15 min) Moderate 12/09/2017 Patient Education: Patient Medication Summary Completed 12/09/2017 Appointment: Traci Reddytel: [address] [facility] (15 min) Moderate 12/02/2017 Visit Plan: Hypertension [...] was not prescribed. 08/28/2017 Appointment: Traci Reddytel: [address] [facility] (15 min) Moderate 08/28/2017 Patient Education: [...] medication was not prescribed. 07/28/2017 Appointment: Traci Reddytel: [facility]5 [facility] (15 min) Moderate 07/28/2017 Patient Education: Patient Medication Summary Completed 07/28/2017 Appointment: Traci Reddytel: [address] [place], [place] [address] (15 min) Moderate 07/02/2017 Visit Plan: Hypertension [...] was not prescribed. 06/29/2017 Appointment: Traci Reddytel: [facility]5 [facility] (15 min) Moderate 06/29/2017 Patient Education: [...] was not prescribed. 05/28/2017 Appointment: Traci Reddy: [facility]5 [facility] New Patient 05/28/2017 Patient Education: Patient Medication Summary Completed 05/28/2017 Appointment: Traci Reddy: [address] [place], [place] [address] New Patient 05/22/2017 Instructions Comment . Hypertension [...]
--- OUTSIDE RECORDS SUMMARY | 2019-07-19 15:42 | XMS REPORT | CCD ---
Author Author Otilio Reddy Organization Abby Dodd MD, [facility] Address [address] [place] [address] Phone Care Team Providers Care Fine Hairer Name Role Phone PP Unavailable CCM Unavailable Summary Purpose Interface Exchange Insurance Providers Payer name Policy type / Coverage type Covered libertarian ID Effective Begin Date Effective End Date Blue Cross Blue [facility] e Cross/Blue Shield [id number] 2017 Un known Family history Father Diagnosis Age At Onset Alcoholism Unknown Social History Social History Element Codes Description Effective Dates Marital status Unknown S kaye 05/28/2017 Number of children Unknown 0 05/28/[address]: 48913697 Current every day smoker 05/28/2017 Number of [...] Fill Instructions Adderall 30 mg tablet RxNorm: 334529 1 Tablet(s) PO BID 03/19/2018 04/17/2018 Active Adderall 30 mg tablet RxNorm: 141525 1 Tablet(s) PO BID 02/23/2018 03/18/2018 Inactive Adderall 30 mg tablet RxNorm: 676149 1 Tablet(s) PO BID 01/25/2018 02/22/2018 Inactive Adderall 30 mg tablet RxNorm: 720534 1 Tablet(s) PO BID 12/25/2017 01/23/2018 Inactive Adderall 30 mg tablet RxNorm: 982658 1 Tablet(s) PO BID 11/26/2017 12/24/2017 Inactive Adderall 30 mg tablet RxNorm: 861036 1 Tablet(s) PO BID 10/22/2017 11/25/2017 Inactive Adderall 30 mg tablet RxNorm: 614463 1 Tablet(s) PO BID 09/22/2017 10/21/2017 Inactive Adderall 30 mg tablet RxNorm: 793169 1 Tablet(s) PO BID 08/28/2017 09/21/2017 Inactive metoprolol tartrate 25 mg tablet RxNorm: 703598 1/2 Tablet(s) PO alfa y 07/28/2017 08/26/2017 In active Adderall 30 mg tablet RxNorm: 482985 1 Tablet(s) PO BID 06/29/2017 08/29/2017 Inactive Adderall 30 mg tablet RxNorm: 474241 1 Tablet(s) PO BID 05/28/2017 06/29/2017 Inactive Adderall 30 mg tablet RxNorm: 896124 1 Tablet(s) PO BID No Start Date [...] 1: 128/74 Code: 8480-6 BMI: 24.8 Code: 07731-9 Heart Rate 1: 88 bpm Height: 5' SpO2: 99% Weight: 127 lbs 12/09/2017 Blood Pressure 1: 133/88 Code: 8480-6 BMI: 24.2 Code: 94077-3 Heart Rate 1: 102 bpm Height: 5' SpO2: 98% Weight: 124 lbs 08/28/2017 Blood Pressure 1: 130/86 Code: 8480-6 BMI: 24.2 Code: 20546-5 Heart Rate 1: 90 bpm Height: 5' SpO2: 98% Weight: 124 lbs 07/28/2017 Blood Pressure 1: 138/88 Code: 8480-6 BMI: 24.4 Code: 91238-2 Heart Rate 1: 105 bpm Height: 5' SpO2: 98% Weight: 125 lbs 06/29/2017 Blood Pressure 1: 180/120 Code: 8480-6 Blood Pressure 1: 158/96 Code: 8480-6 Blood Pressure 1: 148/82 Code: 8480-6 BMI: 24.6 Code: 39058-4 Heart Rate 1: 107 bpm Heart Rate 1: 92 bpm Height: 5' SpO2: 99% Weight: 126 lbs 05/28/2017 Blood Pressure 1: 152/98 Code: 8480-6 BMI: 24.4 Code: 28568-6 Heart Rate 1: 104 bpm Height: 5' [...] Encounters Encounter Performer Loca tion Codes Date 81738 EST. PATIENT, LEVEL III Diagnosis: Essential (primary) hypertension[ICD10: I10] Diagnosis: Attention-deficit hyperactivity disorder, combined type[ICD10: F90.2] Traci Dodd MD, [facility] CPT-4: 88217 03/19/2018 43133 EST. PATIENT, LEVEL IV Diagnosis: Essential (primary) hypertension[ICD10: I10] Diagnosis: Attention-deficit hyperactivity disorder, combined type[ICD10: F90.2] Traci Dodd MD, [facility] CPT-4: 09002 12/09/2017 29894 EST. PATIENT, LEVEL IV Diagnosis: Essential (primary) hypertension[ICD10: I10] Diagnosis: Attention-deficit hyperactivity disorder, combined type[ICD10: F90.2] Traci Dodd MD, [facility] CPT-4: 31080 08/28/2017 16289 EST. PATIENT, LEVEL IV Diagnosis: Essential (primary) hypertension[ICD10: I10] Diagnosis: Attention-deficit hyperactivity disorder, combined type[ICD10: F90.2] Traci Dodd MD, [facility] CPT-4: 47979 07/28/2017 42241 EST. PATIENT, LEVEL IV Diagnosis: Essential (primary) hypertension[ICD10: I10] Diagnosis: Attention-deficit hyperactivity disorder, combined type[ICD10: F90.2] Traci Dodd MD, [facility] CPT-4: 36806 06/29/2017 OFFICE VISIT, NEW - LEVEL 3 Diagnosis: Essential (primary) hypertension[ICD10: I10] Diagnosis: Attention-deficit hyperactivity disorder, combined type[ICD10: F90.2] [facility] CPT-4: 20369 05/28/2017 Plan of Care Planned Activity Notes [...] not prescribed. 03/19/2018 Appointment: Traci Reddy: [facility]5 [facility] (15 min) Moderate 03/19/2018 Patient Education: Patient Medication Summary Completed 03/19/2018 Appointment: Traci Reddy: [facility]5 [facility] (15 min) Moderate 03/18/2018 Visit Plan: [...] was not prescribed. 12/09/2017 Appointment: Traci Reddy: [address] [facility] (15 min) Moderate 12/09/2017 Patient Education: Patient Medication Summary Completed 12/09/2017 Appointment: Traci Reddy WPtel: [address] [facility] (15 min) Moderate 12/02/2017 Visit Plan: [...] prescribed. 08/28/2017 Appointment: [facility]el[facility] (15 min) Moderate 08/28/2017 Patient Education: [...] not prescribed. 07/28/2017 Appointment: Traci Reddy WPtel: [address] [facility] (15 min) Moderate 07/28/2017 Patient Education: Patient Medication Summary Completed 07/28/2017 Appointment: Traci Reddy WPtel: [address] [facility] (15 min) Moderate 07/02/2017 Visit Plan: [...] not prescribed. 06/29/2017 Appointment: Tr[facility]Ptel: [facility] [facility] (15 min) Moderate 06/29/2017 Patient Education: [...] prescribed. 05/28/2017 Appointment: Traci Reddy [facility]Ptel: [facility] [facility] New Patient 05/28/2017 Patient Education: Patient Medication Summary Completed 05/28/2017 Appointment: Traci Reddy WPtel: [facility] [facility] New Patient 05/22/2017 Instructions Comment . [...]
--- OUTSIDE RECORDS SUMMARY | 2019-07-19 15:43 | XMS REPORT ---
Author Author Otilio Garcia Organization [facility] Address [address] [place] [address] Care Team Providers Care Linux System Engineer Name Role Phone DANILO Garcia Unavailable PROBLEMS Type Condition ICD9-CM Code CDX40-KA Code Onset Dates Condition S tatus SNOMED Code Problem STATE HEP A (ADULT) DX V05.3 Active 711614786 Problem TYPHOID VACCINE DX V03.1 Active 1 05356517 Problem Screening examination for venereal disease V74.5 Active 358598509 Problem Surveillance of other previously prescribed cont raceptive method V25.49 Active 292136350 ALLERGIES No Information ENCOUNTERS Encounter Location Date Diagnosis [facility] [address] [phone] Mar, Oral health maintenance stat us requiring routine preventive dental care K08.9 and Dental examination Z01.[address] [facility] [address] [id number] [place] [phone] Dec, Rash and nonspecific skin er uption R21 [facility] [id number] [place] [id number] May, Dental examination Z01.20 [facility] [id number] [place] [id number] Aug, Dental examination Z01.20 [facility] [id number] [place] [address] [id number] Jun, Dental examination Z01.20 [facility] [id number] [place] [id number] Mar, Dental examination Z01.20 [facility] [id number] [place] [id number] Feb, Dental examination Z01.20 [facility] [address] [id number] [address] [place] [id number] Dec, Dental examination Z01.[address] [facility] [address] [id number] [address] [place] [phone] Jun, Acute right ankle pain M25.5 71 [facility] [address] [id number] [address] [place] [phone] Jun, [facility] [address] [id number] [address] [place] [phone] Jun, [facility] [address] [id number] [address] [place] [phone] Apr, [facility] [address] [id number] [address] [place] [phone] Apr, 2014 [facility] [address] [id number] [address] [place] [phone] Apr, 2014 [facility] [address] [id number] [address] [place] [phone] Apr, 2014 [facility] [address] [id number] [address] [place] [phone] Apr, [facility] [address] [id number] [address] [place] [phone] Apr, 2014 [facility] [address] [id number] [address] [place] [phone] Apr, 2014 [facility] [address] [id number] [address] [place] [phone] Apr, 2014 [facility] [address] [id number] [address] [place] [phone] Apr, 2014 [facility] [address] [id number] [address] [place] [phone] Apr, 2014 [facility] [address] [id number] [address] [place] [phone] 02 Apr, 2014 [facility] [address] [id number] [address] [place] [phone] 14 Aug, 2012 [facility] [address] [id number] [address] [place] [phone] May, [facility] [address] [id number] [address] [place] [phone] 14 Feb, 2012 [facility] [address] [id number] [address] [place] [phone] 14 Feb, 2012 [facility] [address] [id number] [address] [place] [phone] Dec, [facility] [address] [facility] [id number] [address] [place] [phone] 15 Dec, 2011 [facility] [address] [facility] [id number] [address] [place] [phone] Jun, IMMUNIZATIONS No Known Immunizations SOCIAL HISTORY Never Assessed REASON FOR VISIT PLAN OF CARE VITAL SIGNS Height 60 in 2014-05-01 Weight 124.49 lbs 2014-05-01 Temperature 97.6 degrees Fahrenheit 2014-05-01 Heart Rate 82 bpm 2014-05-01 Respiratory Rate 18 2014-05-01 Blood pressure systolic 124 mmHg 2014-05-01 Blood pressure diastolic 78 mmHg 2014-05-01 MEDICATIONS Unknown Medications RESULTS No Results PROCEDURES Procedure Date Ordered Result Body Site VENIPUNCT, ROUTINE* May 01, 2014 INSTRUCTIONS MEDICATIONS ADMINISTERED No Known Medications MEDICAL (GENERAL) HISTORY Type Description Date Medical History ADHD Surgical History No Surgical history information
--- OUTSIDE RECORDS SUMMARY | 2019-07-19 15:43 | XMS REPORT | CCD ---
Author Author Otilio Reddy Organization Abby Dodd MD, [facility] Address [address] [place] [address] Phone Care Team Providers Care Manganese Breaker Name Role Phone PP Unavailable CCM Unavailable Summary Purpose Interface Exchange Insurance Providers Payer name Policy type / Coverage type Covered constitution party ID Effective Begin Date Effective End Date Blue Cross Blue [facility] e Cross/Blue Shield [id number] 2017 Un known Family history Father Diagnosis Age At Onset Alcoholism Unknown Social History Social History Element Codes Description Effective Dates Marital status Unknown S kaye 05/28/2017 Number of children Unknown 0 05/28/[address]: 33199452 Current every day smoker 05/28/2017 Number of [...] Fill Instructions Adderall 30 mg tablet RxNorm: 086385 1 Tablet(s) PO BID 02/23/2018 03/24/2018 Active Adderall 30 mg tablet RxNorm: 449894 1 Tablet(s) PO BID 01/25/2018 02/22/2018 Inactive Adderall 30 mg tablet RxNorm: 859748 1 Tablet(s) PO BID 12/25/2017 01/23/2018 Inactive Adderall 30 mg tablet RxNorm: 942622 1 Tablet(s) PO BID 11/26/2017 12/24/2017 Inactive Adderall 30 mg tablet RxNorm: 271446 1 Tablet(s) PO BID 10/22/2017 11/25/2017 Inactive Adderall 30 mg tablet RxNorm: 416065 1 Tablet(s) PO BID 09/22/2017 10/21/2017 Inactive Adderall 30 mg tablet RxNorm: 901133 1 Tablet(s) PO BID 08/28/2017 09/21/2017 Inactive metoprolol tartrate 25 mg tablet RxNorm: 759057 1/2 Tablet(s) PO alfa y 07/28/2017 08/26/2017 In active Adderall 30 mg tablet RxNorm: 454448 1 Tablet(s) PO BID 06/29/2017 08/29/2017 Inactive Adderall 30 mg tablet RxNorm: 749268 1 Tablet(s) PO BID 05/28/2017 06/29/2017 Inactive Adderall 30 mg tablet RxNorm: 204794 1 Tablet(s) PO BID No Start Date 05/27/2017 Inactive Medication Administered No Medication Administered data Immunizations No Immunization data Assessments Condition Codes Effectiv e Dates Essential (primary) hypertension ICD -10: I10 ICD-9: 401.1 12/09/2017 Attention-deficit hyperactivity disorder, combined typ e ICD- 10: F90.2 ICD-9: 314.01 12/09/2017 Reason For Visit Reason For Visit Effective Dates Notes medication follow up 12/09/2017 medication follow up 08/28/2017 medication follow up 07/28/2017 medication follow up 06/29/2017 medication follow up 05/28/2017 Results No Results data Review of Systems System Result Effective Dates Constitutional No recent illness 12/09/2017 Constitutional No [...] Effective Dates Notes Full Exam - General 1995 Constitutional general appearance Overall: well developed 12/09/2017 [...] No Procedures data Vital Signs Date Vital 12/09/2017 Blood Pressure 1: 133/88 Code: 8480-6 BMI: 24.2 Code: 31498-0 Heart Rate 1: 102 bpm Height: 5' SpO2: 98% Weight: 124 lbs 08/28/2017 Blood Pressure 1: 130/86 Code: 8480-6 BMI: 24.2 Code: 67434-1 Heart Rate 1: 90 bpm Height: 5' SpO2: 98% Weight: 124 lbs 07/28/2017 Blood Pressure 1: 138/88 Code: 8480-6 BMI: 24.4 Code: 93531-7 Heart Rate 1: 105 bpm Height: 5' SpO2: 98% Weight: 125 lbs 06/29/2017 Blood Pressure 1: 180/120 Code: 8480-6 Blood Pressure 1: 158/96 Code: 8480-6 Blood Pressure 1: 148/82 Code: 8480-6 BMI: 24.6 Code: 20015-8 Heart Rate 1: 107 bpm Heart Rate 1: 92 bpm Height: 5' SpO2: 99% Weight: 126 lbs 05/28/2017 Blood Pressure 1: 152/98 Code: 8480-6 BMI: 24.4 Code: 27945-8 Heart Rate 1: 104 bpm Height: 5' SpO2: 97% Weight: 125 lbs Functional Status No Functional Status data History of Present Illness Symptom Name Status Resu lt Effective Date Notes medication follow up Location oral intake 12/09/2017 [...] Encounters Encounter Performer Loca tion Codes Date EST. PATIENT, LEVEL IV Diagnosis: Essential (primary) hypertension[ICD10: I10] Diagnosis: Attention-deficit hyperactivity disorder, combined type[ICD10: F90.2] Traci Dodd MD, [facility] CPT-4: 30408 12/09/2017 41505 EST. PATIENT, LEVEL IV Diagnosis: Essential (primary) hypertension[ICD10: I10] Diagnosis: Attention-deficit hyperactivity disorder, combined type[ICD10: F90.2] Traci Dodd MD, [facility] CPT-4: 75567 08/28/2017 06416 EST. PATIENT, LEVEL IV Diagnosis: Essential (primary) hypertension[ICD10: I10] Diagnosis: Attention-deficit hyperactivity disorder, combined type[ICD10: F90.2] [facility] CPT-4: 31631 07/28/2017 49206 EST. PATIENT, LEVEL IV Diagnosis: Essential (primary) hypertension[ICD10: I10] Diagnosis: Attention-deficit hyperactivity disorder, combined type[ICD10: F90.2] [facility] CPT-4: 61890 06/29/2017 OFFICE VISIT, NEW - LEVEL 3 Diagnosis: Essential (primary) hypertension[ICD10: I10] Diagnosis: Attention-deficit hyperactivity disorder, combined type[ICD10: F90.2] [facility] CPT-4: 31806 05/28/2017 Plan of Care Planned Activity Notes [...] 12/09/2017 Appointment: Traci Reddy WPtel[facility] (15 min) Moderate 12/09/2017 Patient Education: Patient Medication Summary Completed 12/09/2017 Appointment: Tr[facility] Red[facility]Ptel[phone] (15 min) Moderate 12/02/2017 Visit Plan: Hypertension [...] was not prescribed. 08/28/2017 Appointment: Traci Reddytel: [facility]2 [facility] (15 min) Moderate 08/28/2017 Patient Education: [...] was not prescribed. 07/28/2017 Appointment: Traci Reddyl: [phone] [facility] (15 min) Moderate 07/28/2017 Patient Education: Patient Medication Summary Completed 07/28/2017 Appointment: Traci Reddytel: [facility]3 [facility] (15 min) Moderate 07/02/2017 Visit Plan: [...] prescribed. 06/29/2017 Appointment: [facility]dy [facility]el[phone] (15 min) Moderate 06/29/2017 Patient Education: [...] not prescribed. 05/28/2017 Appointment: Traci Reddy WPtel: [phone] [facility] [place] New Patient 05/28/2017 Patient Education: Patient Medication Summary Completed 05/28/2017 Appointment: Barry Traci [facility]Ptel[phone] New Patient 05/22/2017 Instructions Comment . [...]
--- OUTSIDE RECORDS SUMMARY | 2019-07-19 15:43 | XMS REPORT ---
Author Author Otilio GÓMEZ Organization [facility] Address [address] [place] [address] Phone Unavailable Care Team Providers Care Able Bodied Tankerman Name Role Phone SHIRA GÓMEZ Unavailable Unavailable PROBLEMS Type Condition ICD9-CM Code ELM93-DP Code Onset Dates Condition S tatus SNOMED Code Problem TYPHOID VACCINE DX V03.1 Active 1 83217805 Problem STATE HEP A (ADULT) DX V05.3 Active 780551084 Problem Surveillance of other previously prescribed cont raceptive method V25.49 Active 841082702 Problem Screening examination for venereal disease V74.5 Active 139416336 ALLERGIES Substance Reaction Event Type Date Status Nickel Unknown Non Drug Allergy Dec, Active ENCOUNTERS Encounter Location Date Diagnosis [facility] [address] [id number] [address] [place] [phone] Dec, Rash and nonspecific skin er uption R21 [facility] [id number] [place] [address] [phone] May, Dental examination Z01.20 [facility] [address] [id number] [address] [place] [phone] Aug, Dental examination Z01.20 [facility] [address] [id number] [address] [place] [address] [phone] Jun, Dental examination Z01.20 [facility] [address] [id number] [address] [place] [address] [phone] Mar, Dental examination Z01.20 [facility] [address] [facility] [id number] [address] [place] [address] [phone] Feb, Dental examination Z01.20 [facility] [address] [facility] [id number] [address] [place] [address] [phone] Dec, Dental examination Z01.20 [facility] [address] [id number] [address] [place] [address], [place] [phone] Jun, Acute right ankle pain M25.5 71 [facility] [address] [id number] [address] [place] [address], [place] [phone] 14 Jun, 2014 [facility] [address] [id number] [address] [place] [address], [place] [phone] Jun, [facility] [address] [id number] [address] [place] [address], [place] [phone] Apr, 2014 [facility] [address] [id number] [address] [place] [address], [place] [phone] Apr, 2014 [facility] [address] [id number] [address] [place] [phone] Apr, 2014 [facility] [address] [id number] [address] [place] [address], [place] [phone] Apr, 2014 [facility] [address] [id number] [address] [place] [phone] Apr, 2014 [facility] [address] [id number] [address] [place] [phone] Apr, 2014 [facility] [address] [id number] [address] [place] [phone] Apr, 2014 [facility] [address] [id number] [address] [place] [phone] Apr, 2014 [facility] [address] [id number] [address] [place] [phone] Apr, 2014 [facility] [address] [id number] [address] [place] [phone] Apr, 2014 [facility] [address] [id number] [address] [place] [phone] Apr, 2014 [facility] [address] [id number] [address] [place] [phone] 14 Aug, 2012 [facility] [address] [facility] [id number] [address] [place] [phone] May, [facility] [address] [facility] [id number] [address] [place] [phone] Feb, [facility] [address] [facility] [id number] [address] [place] [phone] Feb, [facility] [address] [facility] [id number] [address] [place] [phone] Dec, [facility] [address] [facility] [id number] [address] [place] [phone] Dec, [facility] [address] [facility] [id number] [address] [place] [phone] Jun, IMMUNIZATIONS No Known Immunizations SOCIAL HISTORY Never Assessed REASON FOR VISIT Rash on rt breast that appeared yesterday as a rash on her neck that started a c ouple of months ago.--[employer] PLAN OF CARE Activity Details Follow Up prn Reason: VITAL SIGNS Height 60 in 2018-01-05 Weight 122 lbs 2018-01-05 Temperature 98.4 degrees Fahrenheit 2018-01-05 Heart Rate 116 bpm 2018-01-05 Respiratory Rate 18 2018-01-05 BMI 23.82 kg/m2 2018-01-05 Blood pressure systolic 136 mmHg 2018-01-05 Blood pressure diastolic 90 mmHg 2018-01-05 MEDICATIONS Medication Instructions Dosage Frequency Start Date End Date Duration S antonious Adderall 30 MG Orally BID 1 tablet in the morning 12h Active Depo-Provera 150 mg/mL inject 150 mg by intramuscular route every 3 months Apr, Active Triamcinolone Acetonide 0.5 % Externally Twice a day 1 appli cation to affected area 12h Dec, 7 days Active RESULTS No Results PROCEDURES No Known procedures INSTRUCTIONS MEDICATIONS ADMINISTERED No Known Medications MEDICAL (GENERAL) HISTORY Type Description Date Medical History ADHD Surgical History No know Surgical history
--- OUTSIDE RECORDS SUMMARY | 2019-07-19 15:43 | XMS REPORT ---
Author Author Otilio Clemons Doctor Organization [facility] Address Unknown Phone Unavailable Care Team Providers Care Neon Tube Bender Name Role Phone Migration, Doctor Unavailable Unavailable PROBLEMS Type Condition ICD9-CM Code PFW21-CF Code Onset Dates Condition S tatus SNOMED Code Problem STATE HEP A (ADULT) DX V05.3 Active 195452073 Problem TYPHOID VACCINE DX V03.1 Active 1 08650517 Problem Screening examination for venereal disease V74.5 Active 220844625 Problem Surveillance of other previously prescribed cont raceptive method V25.49 Active 902218869 ALLERGIES Substance Reaction Event Type Date Status Nickel Unknown Non Drug Allergy Jun, Active ENCOUNTERS Encounter Location Date Diagnosis [facility] [id number] [place] [address] [phone] Mar, Oral health maintenance stat us requiring routine preventive dental care K08.9 and Dental examination Z01.20 [facility] [address] [facility] [id number] [address] [place] [phone] Dec, Rash and nonspecific skin er uption R21 [facility] [address] [facility] [id number] [address] [place] [address] [phone] May, Dental examination Z01.20 [facility] [address] [facility] [id number] [address] [place] [address] [phone] Aug, Dental examination Z01.20 [facility] [address] [facility] [id number] [address] [place] [address] [phone] Jun, Dental examination Z01.20 [facility] [address] [facility] [id number] [address] [place] [address] [phone] Mar, Dental examination Z01.20 [facility] [address] [facility] [id number] [address] [place] [address] [phone] Feb, Dental examination Z01.20 [facility] [address] [facility] [id number] [address] [place] [address] [phone] Dec, Dental examination Z01.20 [facility] [address] [id number] [address] [place] [phone] Jun, Acute right ankle pain M25.5 71 [facility] [address] [id number] [address] [place] [phone] 14 Jun, 2014 [facility] [address] [id number] [address] [place] [phone] Jun, [facility] [address] [id number] [address] [place] [phone] Apr, [facility] [address] [id number] [address] [place] [phone] Apr, [facility] [address] [id number] [address] [place] [phone] Apr, 2014 [facility] [address] [id number] [address] [place] [phone] Apr, 2014 [facility] [address] [id number] [address] [place] [phone] Apr, [facility] [address] [id number] [address] [place] [phone] Apr, [facility] [address] [id number] [address] [place] [phone] Apr, 2014 [facility] [address] [id number] [address] [place] [phone] Apr, 2014 [facility] [address] [id number] [address] [place] [phone] Apr, 2014 [facility] [address] [id number] [address] [place] [phone] Apr, 2014 [facility] [address] [id number] [address] [place] [phone] Apr, 2014 [facility] [address] [id number] [address] [place] [phone] 14 Aug, 2012 [facility] [address] [id number] [address] [place] [phone] May, [facility] [address] [id number] [address] [place] [phone] Feb, [facility] [address] [id number] [address] [place] [phone] Feb, [facility] [address] [id number] [address] [place] [phone] Dec, [facility] [address] [id number] [address] [place] [phone] Dec, [facility] [address] [facility] [id number] [address] [place] [phone] 16 Jun, 2008 IMMUNIZATIONS No Known Immunizations SOCIAL HISTORY Never Assessed REASON FOR VISIT [facility] PLAN OF CARE VITAL SIGNS MEDICATIONS Medication Instructions Dosage Frequency Start Date End Date Duration S tatus Depo-Provera 150 mg/mL inject 150 mg by intramuscular route every 3 months Apr, Active RESULTS No Results PROCEDURES No Known procedures INSTRUCTIONS MEDICATIONS ADMINISTERED No Known Medications MEDICAL (GENERAL) HISTORY Type Description Date Medical History ADHD Surgical History No Surgical history information
--- OUTSIDE RECORDS SUMMARY | 2019-07-19 15:43 | XMS REPORT | CCD ---
Author Author Otilio Reddy Organization Abby Dodd MD, [facility] Address [address] [place] [address] Phone Care Team Providers Care Exceptional Student Education Aide Name Role Phone PP Unavailable CCM Unavailable Summary Purpose Interface Exchange Insurance Providers Payer name Policy type / Coverage type Covered constitution party ID Effective Begin Date Effective End Date Blue Cross Blue [facility] e Cross/Blue Shield [id number] 2017 Un known Family history Father Diagnosis Age At Onset Alcoholism Unknown Social History Social History Element Codes Description Effective Dates Marital status Unknown S kaye 05/28/2017 Number of children Unknown 0 05/28/[address]: 08003284 Current every day smoker 05/28/2017 Number of [...] Fill Instructions Adderall 30 mg tablet RxNorm: 875080 1 Tablet(s) PO BID 01/25/2018 02/23/2018 Active Adderall 30 mg tablet RxNorm: 493337 1 Tablet(s) PO BID 12/25/2017 01/23/2018 Inactive Adderall 30 mg tablet RxNorm: 581295 1 Tablet(s) PO BID 11/26/2017 12/24/2017 Inactive Adderall 30 mg tablet RxNorm: 423409 1 Tablet(s) PO BID 10/22/2017 11/25/2017 Inactive Adderall 30 mg tablet RxNorm: 848696 1 Tablet(s) PO BID 09/22/2017 10/21/2017 Inactive Adderall 30 mg tablet RxNorm: 899832 1 Tablet(s) PO BID 08/28/2017 09/21/2017 Inactive metoprolol tartrate 25 mg tablet RxNorm: 286871 1/2 Tablet(s) PO alfa y 07/28/2017 08/26/2017 In active Adderall 30 mg tablet RxNorm: 096944 1 Tablet(s) PO BID 06/29/2017 08/29/2017 Inactive Adderall 30 mg tablet RxNorm: 775508 1 Tablet(s) PO BID 05/28/2017 06/29/2017 Inactive Adderall 30 mg tablet RxNorm: 158401 1 Tablet(s) PO BID No Start Date [...] 1: 133/88 Code: 8480-6 BMI: 24.2 Code: 37653-7 Heart Rate 1: 102 bpm Height: 5' SpO2: 98% Weight: 124 lbs 08/28/2017 Blood Pressure 1: 130/86 Code: 8480-6 BMI: 24.2 Code: 86920-2 Heart Rate 1: 90 bpm Height: 5' SpO2: 98% Weight: 124 lbs 07/28/2017 Blood Pressure 1: 138/88 Code: 8480-6 BMI: 24.4 Code: 42955-4 Heart Rate 1: 105 bpm Height: 5' SpO2: 98% Weight: 125 lbs 06/29/2017 Blood Pressure 1: 180/120 Code: 8480-6 Blood Pressure 1: 158/96 Code: 8480-6 Blood Pressure 1: 148/82 Code: 8480-6 BMI: 24.6 Code: 88139-1 Heart Rate 1: 107 bpm Heart Rate 1: 92 bpm Height: 5' SpO2: 99% Weight: 126 lbs 05/28/2017 Blood Pressure 1: 152/98 Code: 8480-6 BMI: 24.4 Code: 07759-6 Heart Rate 1: 104 bpm Height: 5' [...] Encounters Encounter Performer Loca tion Codes Date 51945 EST. PATIENT, LEVEL IV Diagnosis: Essential (primary) hypertension[ICD10: I10] Diagnosis: Attention-deficit hyperactivity disorder, combined type[ICD10: F90.2] Traci Dodd MD, [facility] CPT-4: 42949 12/09/2017 58915 EST. PATIENT, LEVEL IV Diagnosis: Essential (primary) hypertension[ICD10: I10] Diagnosis: Attention-deficit hyperactivity disorder, combined type[ICD10: F90.2] Traci Dodd MD, [facility] CPT-4: 63489 08/28/2017 77312 EST. PATIENT, LEVEL IV Diagnosis: Essential (primary) hypertension[ICD10: I10] Diagnosis: Attention-deficit hyperactivity disorder, combined type[ICD10: F90.2] Traci Dodd MD, [facility] CPT-4: 45492 07/28/2017 64667 EST. PATIENT, LEVEL IV Diagnosis: Essential (primary) hypertension[ICD10: I10] Diagnosis: Attention-deficit hyperactivity disorder, combined type[ICD10: F90.2] [facility] CPT-4: 81788 06/29/2017 OFFICE VISIT, NEW - LEVEL 3 Diagnosis: Essential (primary) hypertension[ICD10: I10] Diagnosis: Attention-deficit hyperactivity disorder, combined type[ICD10: F90.2] [facility] CPT-4: 29458 05/28/2017 Plan of Care Planned Activity Notes [...] not prescribed. 12/09/2017 Appointment: Tr[facility]el[facility] (15 min) Moderate 12/09/2017 Patient Education: Patient Medication Summary Completed 12/09/2017 Appointment: Traci Reddy [facility]Ptel[phone] (15 min) Moderate 12/02/2017 Visit Plan: Hypertension [...] not prescribed. 08/28/2017 Appointment: Traci Reddy WPtel: [facility] (15 min) Moderate 08/28/2017 Patient Education: Patient [...] not prescribed. 07/28/2017 Appointment: Traci Reddy WPtel: [facility] (15 min) Moderate 07/28/2017 Patient Education: Patient Medication Summary Completed 07/28/2017 Appointment: Traci Reddy WPtel: [phone] [facility] (15 min) Moderate 07/02/2017 Visit Plan: Hypertension [...] not prescribed. 06/29/2017 Appointment: Traci Reddytel: [phone] [facility] (15 min) Moderate 06/29/2017 Patient Education: Patient [...] not prescribed. 05/28/2017 Appointment: Tr[facility]el[phone] New Patient 05/28/2017 Patient Education: Patient Medication Summary Completed 05/28/2017 Appointment: Traci Reddy: [facility] New Patient 05/22/2017 Instructions Comment . Hypertension [...]
--- OUTSIDE RECORDS SUMMARY | 2019-07-19 15:43 | XMS REPORT ---
Author Author Otilio Garcia Organization [facility] [place] Address [address] [place] [address] Care Team Providers Care Administrative Court Justice Name Role Phone DANILO Garcia Unavailable PROBLEMS Type Condition ICD9-CM Code UGZ51-QH Code Onset Dates Condition S tatus SNOMED Code Problem STATE HEP A (ADULT) DX V05.3 Active 891446435 Problem TYPHOID VACCINE DX V03.1 Active 1 91043282 Problem Screening examination for venereal disease V74.5 Active 728461540 Problem Surveillance of other previously prescribed cont raceptive method V25.49 Active 611581044 ALLERGIES No Information ENCOUNTERS Encounter Location Date Diagnosis [facility] [address] [id number] Mar, Oral health maintenance stat us requiring routine preventive dental care K08.9 and Dental examination Z01.20 [facility] [address] [id number] [address] [place] [phone] Dec, Rash and nonspecific skin er uption R21 [facility] [id number] [place] [address] [id number] May, Dental examination Z01.20 [facility] [id number] [place] [address] [id number] Aug, Dental examination Z01.20 [facility] [id number] [place] [address] [id number] Jun, Dental examination Z01.20 [facility] [id number] [place] [address] [id number] Mar, Dental examination Z01.20 [facility] [id number] [place] [address] [id number] Feb, Dental examination Z01.20 [facility] [address] [id number] [address] [place] [address] [phone] Dec, Dental examination Z01.20 [facility] [address] [id number] [address] [place] [phone] Jun, Acute right ankle pain M25.5 71 [facility] [place] [address] [id number] [address] [place] [phone] Jun, [facility] [place] [address] [id number] [address] [place] [phone] Jun, [facility] [place] [address] [id number] [address] [place] [phone] Apr, [facility] [place] [address] [id number] [address] [place] [phone] Apr, 2014 [facility] [place] [address] [id number] [address] [place] [phone] Apr, 2014 [facility] [place] [address] [id number] [address] [place] [phone] Apr, 2014 [facility] [place] [address] [id number] [address] [place] [phone] Apr, [facility] [place] [address] [id number] [address] [place] [phone] Apr, 2014 [facility] [place] [address] [id number] [address] [place] [phone] Apr, 2014 [facility] [place] [address] [id number] [address] [place] [phone] Apr, 2014 [facility] [place] [address] [id number] [address] [place] [phone] Apr, 2014 [facility] [place] [address] [id number] [address] [place] [phone] Apr, 2014 [facility] [place] [address] [id number] [address] [place] [phone] 02 Apr, 2014 [facility] [place] [address] [id number] [address] [place] [phone] 14 Aug, 2012 [facility] [place] [address] [id number] [address] [place] [phone] May, [facility] [place] [address] [facility] [id number] [address] [place] [phone] 14 Feb, 2012 [facility] [place] [address] [facility] [id number] [address] [place] [phone] 14 Feb, 2012 [facility] [place] [address] [facility] [id number] [address] [place] [phone] Dec, [facility] [place] [address] [facility] [id number] [address] [place] [phone] 15 Dec, 2011 [facility] [place] [address] [facility] [id number] [address] [place] [phone] 16 Jun, 2008 IMMUNIZATIONS No Known Immunizations SOCIAL HISTORY Never Assessed REASON FOR VISIT PLAN OF CARE VITAL SIGNS MEDICATIONS Unknown Medications RESULTS No Results PROCEDURES No Known procedures INSTRUCTIONS MEDICATIONS ADMINISTERED No Known Medications MEDICAL (GENERAL) HISTORY Type Description Date Medical History ADHD Surgical History No Surgical history information
--- OUTSIDE RECORDS SUMMARY | 2019-07-19 15:43 | XMS REPORT ---
Author Author Otilio Garcia Organization [facility] Address [address] [place] [address] Care Team Providers Care Regional Sales Trainer Name Role Phone DANILO Garcia Unavailable PROBLEMS Type Condition ICD9-CM Code NBM09-QG Code Onset Dates Condition S tatus SNOMED Code Problem STATE HEP A (ADULT) DX V05.3 Active 112207505 Problem TYPHOID VACCINE DX V03.1 Active 1 20784599 Problem Screening examination for venereal disease V74.5 Active 182393606 Problem Surveillance of other previously prescribed cont raceptive method V25.49 Active [id number] ALLERGIES No Information ENCOUNTERS Encounter Location Date Diagnosis [facility] [address] [facility] [id number] [address] [place] [phone] Oct, Sprain of right ankle, unspe cified ligament, initial encounter S93.401A [facility] [address] [id number] Mar, Oral health maintenance stat us requiring routine preventive dental care K08.9 and Dental examination Z01.20 [facility] [address] [facility] [id number] [address] [place] [phone] Dec, Rash and nonspecific skin er uption R21 [facility] [address] [facility] [id number] [address] [place] [address] [id number] May, Dental examination Z01.20 [facility] [address] [facility] [id number] [address] [place] [address] [id number] Aug, Dental examination Z01.20 [facility] [address] [facility] [id number] [address] [place] [address] [phone] Jun, Dental examination Z01.20 [facility] [address] [id number] [address] [place] [address] [id number] Mar, Dental examination Z01.20 [facility] [address] [id number] [address] [place] [address] [id number] Feb, Dental examination Z01.20 [facility] [address] [id number] [address] [place] [address] [phone] Dec, Dental examination Z01.20 [facility] [address] [id number] [address] [place] [phone] Jun, Acute right ankle pain M25.5 71 [facility] [address] [id number] [address] [place] [phone] Jun, [facility] [address] [id number] [address] [place] [phone] Jun, [facility] [address] [id number] [address] [place] [phone] Apr, [facility] [address] [id number] [address] [place] [phone] Apr, [facility] [address] [id number] [address] [place] [phone] Apr, [facility] [address] [id number] [address] [place] [phone] Apr, [facility] [address] [id number] [address] [place] [phone] Apr, 2014 [facility] [address] [id number] [address] [place] [phone] Apr, [facility] [address] [id number] [address] [place] [phone] Apr, [facility] [address] [id number] [address] [place] [phone] Apr, [facility] [address] [id number] [address] [place] [phone] Apr, [facility] [address] [id number] [address] [place] [phone] Apr, [facility] [address] [id number] [address] [place] [phone] Apr, [facility] [address] [id number] [address] [place] [phone] Aug, [facility] [address] [id number] [address] [place] [phone] May, [facility] [address] [id number] [address] [place] [phone] Feb, [facility] [address] [id number] [address] [place] [phone] Feb, [facility] [address] [facility] [id number] [address] [place] [phone] Dec, [facility] [address] [facility] [id number] [address] [place] [phone] Dec, [facility] [address] [facility] [id number] [address] [place] [phone] Jun, IMMUNIZATIONS No Known Immunizations SOCIAL HISTORY Never Assessed REASON FOR VISIT PLAN OF CARE VITAL SIGNS MEDICATIONS Unknown Medications RESULTS No Results PROCEDURES No Known procedures INSTRUCTIONS MEDICATIONS ADMINISTERED No Known Medications MEDICAL (GENERAL) HISTORY Type Description Date Medical History ADHD Surgical History No Surgical history information
--- OUTSIDE RECORDS SUMMARY | 2019-07-19 15:43 | XMS REPORT | CCD ---
Author Author Otilio Reddy Organization Abby Dodd MD, [facility] Address [address] [place] [address] Phone Care Team Providers Care Paraffiner Name Role Phone PP Unavailable CCM Unavailable Summary Purpose Interface Exchange Insurance Providers Payer name Policy type / Coverage type Covered alliance party ID Effective Begin Date Effective End Date Blue Cross Blue [facility] e Cross/Blue Shield [id number] 2017 Un known Family history Father Diagnosis Age At Onset Alcoholism Unknown Social History Social History Element Codes Description Effective Dates Marital status Unknown S kaye 05/28/2017 Number of children Unknown 0 05/28/[address]: 51947646 Current every day smoker 05/28/2017 Number of [...] Fill Instructions Adderall 30 mg tablet RxNorm: 516415 1 Tablet(s) PO BID 03/19/2018 04/17/2018 Active Adderall 30 mg tablet RxNorm: 829658 1 Tablet(s) PO BID 02/23/2018 03/18/2018 Inactive Adderall 30 mg tablet RxNorm: 664762 1 Tablet(s) PO BID 01/25/2018 02/22/2018 Inactive Adderall 30 mg tablet RxNorm: 488659 1 Tablet(s) PO BID 12/25/2017 01/23/2018 Inactive Adderall 30 mg tablet RxNorm: 634792 1 Tablet(s) PO BID 11/26/2017 12/24/2017 Inactive Adderall 30 mg tablet RxNorm: 756405 1 Tablet(s) PO BID 10/22/2017 11/25/2017 Inactive Adderall 30 mg tablet RxNorm: 226051 1 Tablet(s) PO BID 09/22/2017 10/21/2017 Inactive Adderall 30 mg tablet RxNorm: 376286 1 Tablet(s) PO BID 08/28/2017 09/21/2017 Inactive metoprolol tartrate 25 mg tablet RxNorm: 622492 1/2 Tablet(s) PO alfa y 07/28/2017 08/26/2017 In active Adderall 30 mg tablet RxNorm: 470511 1 Tablet(s) PO BID 06/29/2017 08/29/2017 Inactive Adderall 30 mg tablet RxNorm: 920443 1 Tablet(s) PO BID 05/28/2017 06/29/2017 Inactive Adderall 30 mg tablet RxNorm: 910647 1 Tablet(s) PO BID No Start Date [...] 1: 128/74 Code: 8480-6 BMI: 24.8 Code: 73412-1 Heart Rate 1: 88 bpm Height: 5' SpO2: 99% Weight: 127 lbs 12/09/2017 Blood Pressure 1: 133/88 Code: 8480-6 BMI: 24.2 Code: 81823-8 Heart Rate 1: 102 bpm Height: 5' SpO2: 98% Weight: 124 lbs 08/28/2017 Blood Pressure 1: 130/86 Code: 8480-6 BMI: 24.2 Code: 86753-0 Heart Rate 1: 90 bpm Height: 5' SpO2: 98% Weight: 124 lbs 07/28/2017 Blood Pressure 1: 138/88 Code: 8480-6 BMI: 24.4 Code: 63419-0 Heart Rate 1: 105 bpm Height: 5' SpO2: 98% Weight: 125 lbs 06/29/2017 Blood Pressure 1: 180/120 Code: 8480-6 Blood Pressure 1: 158/96 Code: 8480-6 Blood Pressure 1: 148/82 Code: 8480-6 BMI: 24.6 Code: 10483-5 Heart Rate 1: 107 bpm Heart Rate 1: 92 bpm Height: 5' SpO2: 99% Weight: 126 lbs 05/28/2017 Blood Pressure 1: 152/98 Code: 8480-6 BMI: 24.4 Code: 72981-2 Heart Rate 1: 104 bpm Height: 5' [...] Encounters Encounter Performer Loca tion Codes Date 32009 EST. PATIENT, LEVEL III Diagnosis: Essential (primary) hypertension[ICD10: I10] Diagnosis: Attention-deficit hyperactivity disorder, combined type[ICD10: F90.2] Traci Dodd MD, [facility] CPT-4: 56590 03/19/2018 94856 EST. PATIENT, LEVEL IV Diagnosis: Essential (primary) hypertension[ICD10: I10] Diagnosis: Attention-deficit hyperactivity disorder, combined type[ICD10: F90.2] Traci Dodd MD, [facility] CPT-4: 28350 12/09/2017 42208 EST. PATIENT, LEVEL IV Diagnosis: Essential (primary) hypertension[ICD10: I10] Diagnosis: Attention-deficit hyperactivity disorder, combined type[ICD10: F90.2] Traci Dodd MD, [facility] CPT-4: 23868 08/28/2017 98873 EST. PATIENT, LEVEL IV Diagnosis: Essential (primary) hypertension[ICD10: I10] Diagnosis: Attention-deficit hyperactivity disorder, combined type[ICD10: F90.2] Traci Dodd MD, [facility] CPT-4: 60095 07/28/2017 50409 EST. PATIENT, LEVEL IV Diagnosis: Essential (primary) hypertension[ICD10: I10] Diagnosis: Attention-deficit hyperactivity disorder, combined type[ICD10: F90.2] Traci Dodd MD, [facility] CPT-4: 71359 06/29/2017 OFFICE VISIT, NEW - LEVEL 3 Diagnosis: Essential (primary) hypertension[ICD10: I10] Diagnosis: Attention-deficit hyperactivity disorder, combined type[ICD10: F90.2] [facility] CPT-4: 95233 05/28/2017 Plan of Care Planned Activity Notes [...] whom the medication was not prescribed. 03/19/2018 Patient Education: Patient Medication Summary Completed 03/19/2018 Appointment: Traci Reddy WPtel: [address] [facility] (15 min) Moderate 03/18/2018 Visit Plan: Hypertension [...] prescribed. 12/09/2017 Appointment: Traci Reddy WPtel: [address] [facility] (15 min) Moderate 12/09/2017 Patient Education: Patient Medication Summary Completed 12/09/2017 [facility] ([facility] min) Moderate 12/02/2017 Visit Plan: [...] prescribed. 08/28/2017 Appointment: [facility] (15 min) Moderate 08/28/2017 Patient Education: [...] was not prescribed. 07/28/2017 Appointment: Traci Reddytel: [facility] (15 min) Moderate 07/28/2017 Patient Education: Patient Medication Summary Completed 07/28/2017 Appointment: Traci Reddytel: [address] [place], [place] [id number] (15 min) Moderate 07/02/2017 Visit Plan: Hypertension [...] was not prescribed. 06/29/2017 Appointment: Traci Reddytel: [facility] (15 min) Moderate 06/29/2017 Patient Education: Patient [...] not prescribed. 05/28/2017 Appointment: [facility] New Patient 05/28/2017 Patient Education: Patient Medication Summary Completed 05/28/2017 Appointment: [facility]ytel[facility] [facility] New Patient 05/22/2017 Instructions Comment . [...]
--- OUTSIDE RECORDS SUMMARY | 2019-07-19 15:43 | XMS REPORT ---
Author Author Otilio Garcia Organization [facility] Address [address] [place] [address] Care Team Providers Care Vegetable Farm Manager Name Role Phone DANILO Garcia Unavailable PROBLEMS Type Condition ICD9-CM Code KVO47-AA Code Onset Dates Condition S tatus SNOMED Code Problem STATE HEP A (ADULT) DX V05.3 Active 920894437 Problem TYPHOID VACCINE DX V03.1 Active 1 08807466 Problem Screening examination for venereal disease V74.5 Active 087515932 Problem Surveillance of other previously prescribed cont raceptive method V25.49 Active 111429958 ALLERGIES No Information ENCOUNTERS Encounter Location Date Diagnosis [facility] [address] [facility] [id number] [address] [place] [phone] Oct, Sprain of right ankle, unspe cified ligament, initial encounter S93.401A [facility] [address] [id number] Mar, Oral health maintenance stat us requiring routine preventive dental care K08.9 and Dental examination Z01.20 [facility] [address] [facility] [id number] [address] [place] [phone] Dec, Rash and nonspecific skin er uption R21 [facility] [address] [facility] [id number] [address] [place] [address] [id number] May, Dental examination Z01.20 [facility] [address] [facility] [id number] [address] [place] [address] [phone] Aug, Dental examination Z01.20 [facility] [address] [facility] [id number] [address] [place] [address] [id number] Jun, Dental examination Z01.20 [facility] [address] [id number] [address] [place] [address] [id number] Mar, Dental examination Z01.20 [facility] [address] [id number] [address] [place] [address] [id number] Feb, Dental examination Z01.20 [facility] [address] [id number] [address] [place] [address] [phone] Dec, Dental examination Z01.20 [facility] [address] [id number] [address] [place] [phone] Jun, Acute right ankle pain M25.5 71 [facility] [address] [id number] [address] [place] [phone] Jun, [facility] [address] [id number] [address] [place] [phone] Jun, [facility] [address] [id number] [address] [place] [phone] Apr, [facility] [address] [id number] [address] [place] [phone] Apr, [facility] [address] [id number] [address] [place] [phone] Apr, [facility] [address] [id number] [address] [place] [phone] Apr, [facility] [address] [id number] [address] [place] [phone] Apr, 2014 [facility] [address] [id number] [address] [place] [phone] Apr, [facility] [address] [id number] [address] [place] [phone] Apr, [facility] [address] [id number] [address] [place] [phone] Apr, [facility] [address] [id number] [address] [place] [phone] Apr, [facility] [address] [id number] [address] [place] [phone] Apr, [facility] [address] [id number] [address] [place] [phone] Apr, [facility] [address] [id number] [address] [place] [phone] Aug, [facility] [address] [id number] [address] [place] [phone] May, [facility] [address] [id number] [address] [place] [phone] Feb, [facility] [address] [id number] [address] [place] [phone] Feb, [facility] [address] [facility] [id number] [address] [place] [phone] Dec, [facility] [address] [facility] [id number] [address] [place] [phone] Dec, [facility] [address] [facility] [id number] [address] [place] [phone] Jun, IMMUNIZATIONS No Known Immunizations SOCIAL HISTORY Never Assessed REASON FOR VISIT PLAN OF CARE VITAL SIGNS MEDICATIONS Unknown Medications RESULTS No Results PROCEDURES No Known procedures INSTRUCTIONS MEDICATIONS ADMINISTERED No Known Medications MEDICAL (GENERAL) HISTORY Type Description Date Medical History ADHD Surgical History No Surgical history information
--- OUTSIDE RECORDS SUMMARY | 2019-07-19 15:43 | XMS REPORT ---
Author Author Otilio Garcia Organization [facility] Address [address] [place] [address] Care Team Providers Care Metal Hanging Supervisor Name Role Phone DANILO Garcia Unavailable PROBLEMS Type Condition ICD9-CM Code [id number] Code Onset Dates Condition S tatus SNOMED Code Problem STATE HEP A (ADULT) DX V05.3 Active 134555319 Problem TYPHOID VACCINE DX V03.1 Active 1 19701924 Problem Screening examination for venereal disease V74.5 Active 717279236 Problem Surveillance of other previously prescribed cont raceptive method V25.49 Active 455118535 ALLERGIES No Information ENCOUNTERS Encounter Location Date Diagnosis [facility] [address] [id number] Mar, Oral health maintenance stat us requiring routine preventive dental care K08.9 and Dental examination Z01.20 [facility] [address] [id number] [address] [place] [phone] Dec, Rash and nonspecific skin er uption R21 [facility] [id number] [place] [address] [id number] May, Dental examination Z01.20 [facility] [id number] [place] [address] [id number] Aug, Dental examination Z01.20 [facility] [id number] [place] [address] [id number] Jun, Dental examination Z01.20 [facility] [address] [id number] [place] [address] [id number] Mar, Dental examination Z01.20 [facility] [id number] [place] [address] [id number] Feb, Dental examination Z01.20 [facility] [address] [id number] [address] [place] [address] [id number] Dec, Dental examination Z01.20 [facility] [address] [id number] [address] [place] [phone] Jun, Acute right ankle pain M25.5 71 [facility] [address] [id number] [address] [place] [phone] Jun, [facility] [address] [id number] [address] [place] [phone] Jun, [facility] [address] [id number] [address] [place] [phone] Apr, [facility] [address] [id number] [address] [place] [phone] Apr, 2014 [facility] [address] [id number] [address] [place] [phone] Apr, 2014 [facility] [address] [id number] [address] [place] [phone] Apr, 2014 [facility] [address] [id number] [address] [place] [phone] Apr, [facility] [address] [id number] [address] [place] [phone] Apr, 2014 [facility] [address] [id number] [address] [place] [phone] Apr, 2014 [facility] [address] [id number] [address] [place] [phone] Apr, 2014 [facility] [address] [id number] [address] [place] [phone] Apr, 2014 [facility] [address] [id number] [address] [place] [phone] Apr, 2014 [facility] [address] [id number] [address] [place] [phone] 02 Apr, 2014 [facility] [address] [id number] [address] [place] [phone] 14 Aug, 2012 [facility] [address] [id number] [address] [place] [phone] 07 May, 2012 [facility] [address] [id number] [address] [place] [phone] 14 Feb, 2012 [facility] [address] [id number] [address] [place] [phone] 14 Feb, 2012 [facility] [address] [id number] [address] [place] [phone] 15 Dec, 2011 [facility] [address] [facility] [id number] [address] [place] [phone] 15 Dec, 2011 [facility] [address] [facility] [id number] [address] [place] [phone] 16 Jun, 2008 IMMUNIZATIONS No Known Immunizations SOCIAL HISTORY Never Assessed REASON FOR VISIT PLAN OF CARE VITAL SIGNS Height 60 in 2014-05-09 Weight 125.6 lbs 2014-05-09 Temperature 98.2 degrees Fahrenheit 2014-05-09 Heart Rate 88 bpm 2014-05-09 Respiratory Rate 18 2014-05-09 Blood pressure systolic 118 mmHg 2014-05-09 Blood pressure diastolic 76 mmHg 2014-05-09 MEDICATIONS Unknown Medications RESULTS No Results PROCEDURES Procedure Date Ordered Result Body Site HIV-1 May 09, 2014 BLOOD SEROLOGY, QUALITATIVE May 09, 2014 VENIPUNCT, ROUTINE* May 09, 2014 INSTRUCTIONS MEDICATIONS ADMINISTERED No Known Medications MEDICAL (GENERAL) HISTORY Type Description Date Medical History ADHD Surgical History No Surgical history information
--- OUTSIDE RECORDS SUMMARY | 2019-07-19 15:44 | XMS REPORT ---
Author Author Otilio CARTAGENA Organization [facility] Address [address] [place] [address] Phone Unavailable Care Team Providers Care Staff Mechanical Engineer Name Role Phone CINDY CARTAGENA Unavailable Unavailable PROBLEMS Type Condition ICD9-CM Code [id number] Code Onset Dates Condition S tatus SNOMED Code Problem TYPHOID VACCINE DX V03.1 Active 1 66789206 Problem STATE HEP A (ADULT) DX V05.3 Active 665502486 Problem Surveillance of other previously prescribed cont raceptive method V25.49 Active 789679255 Problem Screening examination for venereal disease V74.5 Active 069307072 ALLERGIES Substance Reaction Event Type Date Status Nickel Unknown Non Drug Allergy Aug, Active ENCOUNTERS Encounter Location Date Diagnosis [facility] [address] [id number] [address] [place] [address] [phone] May, Dental examination Z01.20 [facility] [address] [id number] [address] [place] [address] [id number] Aug, Dental examination Z01.20 [facility] [address] [id number] [address] [place] [address] [id number] Jun, Dental examination Z01.20 [facility] [address] [id number] [address] [place] [address] [id number] Mar, Dental examination Z01.20 [facility] [address] [id number] [address] [place] [address] [id number] Feb, Dental examination Z01.20 [facility] [address] [id number] [address] [place] [address] [phone] Dec, Dental examination Z01.20 [facility] [address] [facility] [id number] [address] [place] [phone] Jun, Acute right ankle pain M25.5 71 [facility] [address] [id number] [address] [place] [address], [place] [phone] 14 Jun, 2014 [facility] [address] [id number] [address] [place] [address], [place] [phone] 13 Jun, 2014 [facility] [address] [id number] [address] [place] [address], [place] [phone] Apr, 2014 [facility] [address] [id number] [address] [place] [address], [place] [phone] Apr, 2014 [facility] [address] [id number] [address] [place] [address], [place] [phone] Apr, 2014 [facility] [address] [id number] [address] [place] [address], [place] [phone] Apr, 2014 [facility] [address] [id number] [address] [place] [address], [place] [phone] Apr, 2014 [facility] [address] [id number] [address] [place] [address], [place] [address] Apr, 2014 [facility] [address] [id number] [address] [place] [address], [place] [phone] 04 Apr, 2014 [facility] [address] [id number] [address] [place] [address], [place] [phone] 04 Apr, 2014 [facility] [address] [id number] [address] [place] [address], [place] [address] 03 Apr, 2014 [facility] [address] [id number] [address] [place] [phone] Apr, 2014 [facility] [address] [id number] [address] [place] [address], [place] [phone] Apr, [facility] [address] [id number] [address] [place] [address], [place] [address] 14 Aug, 2012 [facility] [address] [id number] [address] [place] [phone] May, [facility] [address] [id number] [address] [place] [phone] 14 Feb, 2012 [facility] [address] [facility] [id number] [address] [place] [phone] 14 Feb, 2012 [facility] [address] [facility] [id number] [address] [place] [phone] 15 Dec, 2011 [facility] [address] [facility] [id number] [address] [place] [phone] 15 Dec, 2011 [facility] [address] [facility] [id number] [address] [place] [phone] 16 Jun, 2008 IMMUNIZATIONS No Known Immunizations SOCIAL HISTORY Never Assessed REASON FOR VISIT PLAN OF CARE Activity Details Follow Up benja Reason:restore VITAL SIGNS Blood pressure systolic 127 mmHg 2016-09-15 Blood pressure diastolic 81 mmHg 2016-09-15 MEDICATIONS Medication Instructions Dosage Frequency Start Date End Date Duration S tatus Depo-Provera 150 mg/mL inject 150 mg by intramuscular route every 3 months Apr, Active Adderall 30 MG Orally BID 1 tablet in the morning 12h Active RESULTS No Results PROCEDURES Procedure Date Ordered Result Body Site PROPHYLAXIS - ADULT September 15, 2016 TOPICAL APPLICATION OF FLUORIDE September 15, 2016 [facility] Employee/Board adjustment September 15, 2016 Billing Notes on claim September 15, 2016 INSTRUCTIONS MEDICATIONS ADMINISTERED No Known Medications
--- OUTSIDE RECORDS SUMMARY | 2019-07-19 15:44 | XMS REPORT ---
Author Author Otilio CARTAGENA [facility] Address [address] [place] [address] Phone Unavailable Care Team Providers Care Machine Heel Builder Name Role Phone CINDY CARTAGENA Unavailable Unavailable PROBLEMS Type Condition ICD9-CM Code [id number] Code Onset Dates Condition S tatus SNOMED Code Problem TYPHOID VACCINE DX V03.1 Active 1 65680620 Problem STATE HEP A (ADULT) DX V05.3 Active 496657056 Problem Surveillance of other previously prescribed cont raceptive method V25.49 Active 417945636 Problem Screening examination for venereal disease V74.5 Active 929902678 ALLERGIES No Information SOCIAL HISTORY Never Assessed PLAN OF CARE Activity Details Follow Up benja Reason:restore VITAL SIGNS MEDICATIONS No Known Medications RESULTS No Results PROCEDURES Procedure Date Ordered Result Body Site PANORAMIC FILM SEE ALSO CODE 18583 July 14, 2016 Billing Notes on claim July 14, 2016 IMMUNIZATIONS No Known Immunizations
--- OUTSIDE RECORDS SUMMARY | 2019-07-19 15:44 | XMS REPORT ---
Author Author Otilio CARTAGENA Organization [employer] Address Unknown Phone Unavailable Care Team Providers Care Mobility Scooter Repairer Name Role Phone CINDY CARTAGENA CP Unavailable Allergies, Adverse Reactions, Alerts Substance Reaction Event Type Nickel Info Not Available Non Drug Allergy Problems Problem Type Condition Code Onset Dates Condition Statu s Problem Surveillance of other previously prescribed cont raceptive method V25.49 Active Problem STATE HEP A (ADULT) DX V05.3 Activ e Problem Screening examination for venereal disease V74.5 Active Problem TYPHOID VACCINE DX V03.1 Active Assessment Dental examination Z01.20 Active Medications Medication Code System Code Instructions Start Date End Date Status Dosage Adderall [facility] [address]-17 30 MG Orally BID 1 tablet in the morning Procedures Procedure Coding System Code Date INTRAORL-PERIAPICAL EA ADD FILM CPT-4 D0230 Jan 21, 2016 INTRAORL-PERIAPICAL EA ADD FILM CPT-4 D0230 Jan 21, 2016 INTRAORL-PERIAPICAL 1 FILM 65634 CPT-4 D0220 Jan 21, 2016 [facility] Employee/Board adjustment CPT-4 [facility] Jan 21, 2016 PROPHYLAXIS - ADULT CPT-4 D1110 Jan 21, 2016 BITEWINGS - FOUR FILMS CPT-4 D0274 Jan 20, 2 016 Billing Notes on claim CPT-4 EC109 Jan 20, 2 016 TOPICAL FLUORIDE VARNISH CPT-4 D1206 Jan 21, 2016 Vital Signs Date/Time: Jan 21, 2016 Blood Pressure Diastolic 97 mmHg Blood Pressure Systolic 138 mmHg Results No Known Results Summary Purpose [employer] Submission
--- OUTSIDE RECORDS SUMMARY | 2019-07-19 15:44 | XMS REPORT ---
Author Author Otilio BELCHER Organization [facility] Address Unknown Care Team Providers Care Pocket Maker Name Role Phone BIBIANA BELCHER Unavailable PROBLEMS Type Condition ICD9-CM Code VIB81-HQ Code Onset Dates Condition S tatus SNOMED Code Problem TYPHOID VACCINE DX V03.1 Active 1 80814207 Problem STATE HEP A (ADULT) DX V05.3 Active 746232976 Problem Surveillance of other previously prescribed cont raceptive method V25.49 Active 681612238 Problem Screening examination for venereal disease V74.5 Active 236973991 ALLERGIES No Known Allergies SOCIAL HISTORY No smoking Hx information available PLAN OF CARE VITAL SIGNS MEDICATIONS No Known Medications RESULTS No Results PROCEDURES Procedure Date Ordered Related Diagnosis Body Site Billing Notes on claim Apr 24, 2016 IMMUNIZATIONS No Known Immunizations
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
== END 2019-07-19 01:32 | disposition left against medical advice (07) ==
LOC: EDUNIT# 01:14 → ER 01:19
DX: S09.90XA Unspecified injury of head, initial encounter (principal); V89.2XXA Person injured in unspecified motor-vehicle accident, traffic, initial encounter

== ENCOUNTER 2020-03-26 16:08 | Emergency (ER) | payer OTHER ==
[~2020-03-26] VITALS: Ht 152.4 cm; Wt 56.6 kg
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
--- NOTE | 2020-03-26 17:41 | Diagnostic Imaging Report ---
EXAMINATION: Chest 2 view HISTORY: Bilateral routine COMPARISON: None available. FINDINGS: The lungs are clear without edema or pneumonia. No pleural effusion or pneumothorax. Heart size is normal. IMPRESSION: 1. Clear lungs. Dictated by: Dictated on workstation # [id number]
[2020-03-26] MEDS ORDERED: ORPHENADRINE 60 MG/2 ML (NORFLEX) AMP (ED ONLY) IM ONE (17:45)
[2020-03-26] MEDS ORDERED: KETOROLAC 60 MG/2 ML VIAL IM ONE (17:45)
[2020-03-26] MEDS ORDERED: CYCL5TAB PO (17:48)
[2020-03-26 18:04] VITALS: BP 197/126
== END 2020-03-26 18:03 | disposition home or self-care (01) ==
LOC: EDUNIT# 16:08 → ER 16:10
DX: S20.20XA Contusion of thorax, unspecified, initial encounter (principal); F17.210 Nicotine dependence, cigarettes, uncomplicated; Y04.8XXA Assault by other bodily force, initial encounter
CPT/HCPCS: 71046

== ENCOUNTER 2020-06-06 02:47 | Emergency (ER) | payer OTHER ==
[~2020-06-06] VITALS: Ht 152 cm; Wt 58.9 kg
[~2020-06-06 02:47] MED LIST: CYCL5TAB PO
[2020-06-06 02:54] VITALS: BP 158/110
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
== END 2020-06-06 03:35 | disposition home or self-care (01) ==
LOC: EDUNIT# 02:47 → ER 02:50
DX: R07.81 Pleurodynia (principal); Z77.22 Contact with and (suspected) exposure to environmental tobacco smoke (acute) (chronic)
CPT/HCPCS: 99281

== ENCOUNTER → 2020-10-02 | Outpatient (CLI) | payer OTHER | LOC: CARD 13:30 | PROVIDERS: ATTEND Internal Medicine Cardiovascular Disease | DX: I51.7 Cardiomegaly (principal); I34.0 Nonrheumatic mitral (valve) insufficiency; R94.31 Abnormal electrocardiogram [ECG] [EKG] | CPT/HCPCS: 93306 ==